=== PATIENT | male | born 1960 | race Caucasian/White ===

== ENCOUNTER → 2018-10-23 | Outpatient (CLI) | payer MEDICARE ==
[2015-10-20 17:42] VITALS: BP 114/71
[~2018-10-23] MED LIST: ABAT250V IV; FOLI1TAB16 PO; HYDR-3164 PO; HYDR-3165 PO; LORA10TA68 PO; METH25VI27 SQ; MULT-496 PO
--- NOTE | 2018-10-23 15:06 | KCIC ---
MR of the right knee Indication: Right knee pain. Prior meniscal surgery in 2015. Comparison: None are available. Technique: The standard multiplanar sequences are obtained. FINDINGS: Artifact: No significant image degradation. Medial meniscus: Complex tear. Lateral meniscus: Intact. Anterior cruciate ligament: Intact. Posterior cruciate ligament: Intact Medial collateral ligament: Intact. Lateral structures: * Iliotibial band: Intact. * Lateral collateral ligament: Intact. * Biceps femoris tendon: Intact * Popliteus tendon attachment: Intact Extensive mechanism: * Patellar tendon: Intact * Quadriceps tendon: Intact * Retinacular structures: Intact Fluid: Small joint effusion. Small Cutler's cyst. Intra-articular bodies: None visualized Joint compartments * patellofemoral joint: Chondral heterogeneity at the lateral patella with fissuring. * medial compartment: Moderate to severe chondromalacia with thinning at the medial femoral condyle. * lateral compartment: Mild degenerative change with chondromalacia. Bones: Small bone lesion, proximal fibula, measures about 1 cm, likely an enchondroma. No aggressive bone destruction or acute fracture. Minimal subchondral marrow edema posterior weightbearing lateral femoral condyle. Soft tissue: Unremarkable Impression: 1. Abnormal medial meniscus with distortion and some internal T2 signal. Even considering prior surgical intervention, this is compatible with a tear. 2. Primary osteoarthritis. Electronically signed by: Deandre Cook MD (10/23/2018 3:03 PM) [facility]-KCIC2
== END | disposition home or self-care (01) ==
LOC: KCIC MRI 12:46
PROVIDERS: ATTEND Family Medicine
DX: M17.11 Unilateral primary osteoarthritis, right knee (principal); M71.21 Synovial cyst of popliteal space [Baker], right knee
CPT/HCPCS: 73721

== ENCOUNTER → 2019-02-04 | Outpatient (CLI) | payer MEDICARE ==
[2015-10-20 17:42] VITALS: BP 114/71
--- NOTE | 2019-02-04 13:35 | KCIC ---
MR of the right knee HISTORY: Right knee pain, lateral injury a few days ago while taking a step. COMPARISON: 10/23/2018 TECHNIQUE: Routine multiplanar sequences FINDINGS: Medial meniscus is small and blunted. The posterior horn appears slightly smaller than the prior study. No evidence of lateral meniscal tear. Anterior and posterior cruciate ligament are intact. Medial collateral ligament intact. Iliotibial band, fibular collateral ligament and biceps femoris tendon are intact. Extensor mechanism is intact. Trace joint effusion. Defect/fissure at the lateral patellar facet is stable. Chondral thinning of the medial femoral condyle, appears full-thickness., Unchanged. Milder chondromalacia of the lateral joint compartment is stable. No aggressive bone destruction or acute fracture. Small Cutler's cyst. Mild lateral patellar tilt and subluxation again seen. IMPRESSION: 1. Findings again compatible with a medial meniscal tear. The posterior horn appears slightly smaller than previous study, could be due to progressive tearing unless there has been interim meniscectomy since prior study. 2. Primary osteoarthritis is redemonstrated. Electronically signed by: Deandre Cook MD (02/04/2019 1:32 PM) [facility]-KCIC2
== END | disposition home or self-care (01) ==
LOC: KCIC MRI 11:33
PROVIDERS: ATTEND Family Medicine
DX: S83.191A Other subluxation of right knee, initial encounter (principal); M17.11 Unilateral primary osteoarthritis, right knee; Z87.828 Personal history of other (healed) physical injury and trauma; X58.XXXA Exposure to other specified factors, initial encounter; Y93.89 Activity, other specified; Y92.89 Other specified places as the place of occurrence of the external cause; Y99.8 Other external cause status
CPT/HCPCS: 73721

== ENCOUNTER → 2019-09-06 | Outpatient (CLI) | payer MEDICARE ==
[2015-10-20 17:42] VITALS: BP 114/71
--- NOTE | 2019-09-06 11:00 | KCIC ---
EXAM: Dual energy x-ray absorptiometry (DEXA). HISTORY: Rheumatoid arthritis, chronic steroid use. TECHNIQUE: Dual energy x-ray absorptiometry of the lumbar spine and the left hip was performed. T-score of average bone mineral density based was calculated based on standard deviations above or below the expected young adult normal value. Diagnostic definitions were established by the World Health Organization. FINDINGS: The average bone mineral density associated with L1-L4 is 1.237 g/cm^2, corresponding with a T-score of 1.3. The average total bone mineral density associated with the left hip is 1.089 g/cm^2, corresponding with a T-score of 0.4. No comparison examinations are available. Refer to the worksheets for full detail. IMPRESSION: 1. Normal. Average bone mineral density yields a T-score of -1.0 or greater. Fracture risk is low. Electronically signed by: America Unger MD (09/06/2019 10:57 AM) [facility]
--- NOTE | 2019-09-07 09:39 | KCIC ---
CT LOW DOSE LUNG SCREENING History: Smoker. Technique: Noncontrast CT of the chest was performed. Coronal and sagittal reconstructions were performed. Low-dose screening protocol. Exposure: One or more of the following individualized dose reduction techniques were utilized for this examination: 1. Automated exposure control 2. Adjustment of the mA and/or kV according to patient size 3. Use of iterative reconstruction technique. Comparison: None Findings: Chest: Mildly prominent mediastinal lymph nodes largest measures 1.0 x 1.0 cm. Left hilar mildly prominent lymph node measures 1.2 x 0.8 cm. Calcified subcarinal lymph nodes and right middle lobe and lingular calcified pulmonary nodules, likely prior granulous disease. No consolidation or pleural effusion. Mild paraseptal emphysema. Right lower lobe medial pleural-based irregular nodular opacity measures 1.5 x 1.2 cm (series 3 image #[id number]). There is suggestion of air bronchogram. Upper abdomen: The imaged upper abdomen is unremarkable. Bones: No pathologic osseous lesions. Impression: 1. Right lower lobe medial pleural-based irregular nodular opacity with suggestion of air bronchograms, may represent atelectasis or infectious/inflammatory process although malignancy is possible. Recommend comparison with prior imaging studies. If prior imaging studies are not available recommend 3 month follow-up or PET CT to further evaluate. Lung RADS 4a. 2. Mildly prominent mediastinal and hilar lymph nodes. Recommend attention on follow-up. Electronically signed by: Edy Aranda DO (09/07/2019 9:37 AM) [id number]
== END | disposition home or self-care (01) ==
LOC: KCIC DEXA 08:56
PROVIDERS: ATTEND Family Medicine
DX: Z12.2 Encounter for screening for malignant neoplasm of respiratory organs (principal); J43.8 Other emphysema; R91.8 Other nonspecific abnormal finding of lung field; M05.89 Other rheumatoid arthritis with rheumatoid factor of multiple sites; F17.210 Nicotine dependence, cigarettes, uncomplicated; Z91.89 Other specified personal risk factors, not elsewhere classified; Z79.52 Long term (current) use of systemic steroids; Z88.8 Allergy status to other drugs, medicaments and biological substances; Z79.899 Other long term (current) drug therapy
CPT/HCPCS: 77080; G0297

== ENCOUNTER → 2019-12-01 | Outpatient (CLI) | payer MEDICARE ==
[2015-10-20 17:42] VITALS: BP 114/71
--- NOTE | 2019-12-01 16:43 | KCIC ---
EXAM: CHEST 2 VIEWS. HISTORY: Right chest pain, right lobectomy. COMPARISON: None. FINDINGS: Frontal and lateral views of the chest are obtained. There are no confluent infiltrates. A trace right pleural effusion is suspected. There is no pneumothorax. The heart is not enlarged. The aorta is calcified and tortuous. IMPRESSION: 1. Trace right pleural effusion. No clear cause for pain is identified. CT is more sensitive if there is persistent concern. Electronically signed by: America Unger MD (12/01/2019 4:40 PM) [facility]
== END | disposition home or self-care (01) ==
LOC: KCIC 11:53
PROVIDERS: ATTEND Family Medicine
DX: I70.0 Atherosclerosis of aorta (principal); J90 Pleural effusion, not elsewhere classified
CPT/HCPCS: 71046

== ENCOUNTER → 2020-05-08 | Outpatient (CLI) | payer MEDICARE ==
[2015-10-20 17:42] VITALS: BP 114/71
[~2020-05-08] MED LIST changes: -ABAT250V IV; +ABAT250V2 IV
--- NOTE | 2020-05-08 08:59 | KCIC ---
EXAM: Left hip, 2 views. HISTORY: Pain. COMPARISON: None. FINDINGS: 2 views of the left hip are obtained. There is no fracture, dislocation or subluxation. The femoral head is normal in configuration. IMPRESSION: No acute osseous finding. Electronically signed by: Jessica Patel MD (05/08/2020 8:56 AM) [id number]
--- NOTE | 2020-05-08 09:01 | KCIC ---
CERVICAL SPINE 5V History: Reason: NECK PAIN, RT ARM/HAND NUMBNESS, WEAKNESS POST FALL 2 MO AGO / Spl. Instructions: / History: Technique: 5 views of the cervical spine. Comparison: None. Findings: Straightening of the normal cervical lordosis. Multilevel degenerative changes most prominent moderate C5-C6 and C6-C7. Mild retrolisthesis C5 on C6. No fracture. Multilevel bony neuroforaminal narrowing. Normal alignment C1 on C2. Prevertebral soft tissues unremarkable. Impression: 1. Multilevel cervical spondylosis most prominent C5-C6 and C6-C7. Electronically signed by: Edy Aranda DO (05/08/2020 8:58 AM) [id number]
== END | disposition home or self-care (01) ==
LOC: KCIC 08:08
PROVIDERS: ATTEND Family Medicine
DX: M47.812 Spondylosis without myelopathy or radiculopathy, cervical region (principal); M25.552 Pain in left hip; G89.29 Other chronic pain
CPT/HCPCS: 72050; 73501

== ENCOUNTER → 2020-11-16 | Outpatient (CLI) | payer MEDICARE ==
[2015-10-20 17:42] VITALS: BP 114/71
--- NOTE | 2020-11-16 12:19 | KCIC ---
XR KNEE_AP BILAT STANDING 11/16/2020 8:25 AM INDICATION: Rheumatoid arthritis COMPARISON: None available. TECHNIQUE: AP standing views of the knees are provided. FINDINGS/ IMPRESSION: 1. There is mild to moderate medial femorotibial joint space narrowing of the right knee. No signific ant joint space narrowing involving the left knee. Findings are suggestive of mild medial femorotibia l osteoarthrosis of the right knee. Limited evaluation for knee joint effusion given single view. Mil d lateral femorotibial osteophytosis of the right knee. 2. No acute fracture or dislocation. Electronically signed by: Naima Le MD (11/16/2020 12:17 PM) [id number]
--- NOTE | 2020-11-16 12:20 | KCIC ---
XR SHOULDER 2+ VIEWS 11/16/2020 8:25 AM INDICATION: Rheumatoid arthritis COMPARISON: None available. TECHNIQUE: 3 views of the left and 3 views the right shoulder are provided. FINDINGS/ IMPRESSION: There is no acute fracture or dislocation. Mild left acromioclavicular osteoarthrosis with inferiorly projecting osteophyte. Mild right glenohumeral osteoarthrosis with joint space 19 marginal osteophyt osis along the humeral head. Bone mineralization is within normal limits. Regional soft tissues are w ithin normal limits. There is no soft tissue gas or osseous erosion. No radiopaque foreign body. Electronically signed by: Naima Le MD (11/16/2020 12:17 PM) [id number]
--- NOTE | 2020-11-16 12:23 | KCIC ---
XR HAND 3 VIEWS 11/16/2020 8:25 AM INDICATION: Rheumatoid arthritis COMPARISON: None available. TECHNIQUE: 3 views of the right 3 views of the left hand are provided. FINDINGS/ IMPRESSION: 1. Left: There are is mild interphalangeal joint space narrowing compatible with mild osteoarthrosis of the left hand predominantly involving the first interphalangeal joint. There is moderate to advanc ed joint space narrowing radiocarpal joint with subcortical sclerosis and subcortical cystic change a long the radial surface and carpal bones. Findings are compatible with moderate to advanced osteoarth rosis of the wrist. Mild first carpometacarpal osteoarthrosis. There may be mild subluxation of the t hird metacarpophalangeal joint with marginal osteophytosis along the head of the third metacarpal. No osseous erosions or subcutaneous gas. 2. Mild joint space narrowing of the interphalangeal joints with more moderate joint space measuring of the first interphalangeal joint with marginal osteophytosis compatible with mild to moderate osteo porosis. There is moderate to advanced osteoporosis of the radiocarpal joint and intercarpal joints. No acute fractures identified. No osseous erosion or subcutaneous gas. Electronically signed by: Naima Le MD (11/16/2020 12:21 PM) [id number]
--- NOTE | 2020-11-16 12:28 | KCIC ---
XR FEET 3 VIEWS 11/16/2020 8:25 AM INDICATION: Rheumatoid arthritis COMPARISON: None available. TECHNIQUE: 3 views the right and 3 views the left foot are provided. FINDINGS/ IMPRESSION: There is no acute fracture or dislocation. Joint spaces are maintained. Bone mineralization is within normal limits. Regional soft tissues are within normal limits. There is no soft tissue gas or osseou s erosion. No radiopaque foreign body. Plantar calcaneal enthesophytes are identified bilaterally. Electronically signed by: Naima Le MD (11/16/2020 12:26 PM) [id number]
== END ==
LOC: KCIC 08:20
PROVIDERS: ATTEND Family Medicine
DX: M19.042 Primary osteoarthritis, left hand (principal); M19.041 Primary osteoarthritis, right hand; M19.012 Primary osteoarthritis, left shoulder; M25.461 Effusion, right knee; M19.011 Primary osteoarthritis, right shoulder; M77.32 Calcaneal spur, left foot; M77.31 Calcaneal spur, right foot; H04.123 Dry eye syndrome of bilateral lacrimal glands; M05.79 Rheumatoid arthritis with rheumatoid factor of multiple sites without organ or systems involvement; M17.9 Osteoarthritis of knee, unspecified; R19.7 Diarrhea, unspecified; R68.2 Dry mouth, unspecified; Z85.118 Personal history of other malignant neoplasm of bronchus and lung
CPT/HCPCS: 73565; 73130-50; 73630-50

== ENCOUNTER → 2021-09-20 | Outpatient (CLI) | payer MEDICARE ==
[2015-10-20 17:42] VITALS: BP 114/71
--- NOTE | 2021-09-20 15:49 | KCIC ---
EXAM: Lumbar spine MRI without contrast. HISTORY: Sciatica. Left lower extremity radiculopathy. TECHNIQUE: Multiplanar, multisequence magnetic resonance imaging of the lumbar spine was performed wi thout contrast. COMPARISON: None. FINDINGS: There is no significant listhesis. There is multilevel endplate remodeling. There are multi ple endplate Schmorl's nodes. There is no fracture. There is no suspicious osseous lesion. There are small Tarlov cyst within the sacral canal. The conus terminates at L1-L2. At L1-L2, there is a disc bulge and endplate remodeling. There is no stenosis. At L2-L3, there is a disc bulge and endplate remodeling. There is no stenosis. At L3-L4, there is a disc bulge and endplate remodeling. There is a right anterolateral annular tear. There is mild bilateral facet arthropathy. There is no stenosis. At L4-L5, there is a disc bulge and endplate remodeling. There is mild bilateral facet arthropathy. T here are left hemilaminectomy changes. There is associated scarring within the posterior back subcuta neous fat to left of midline. There is mild bilateral foraminal stenosis with suspected abutment or n ear abutment of the exiting L4 nerve roots. At L5-S1, there is mild right facet arthropathy. There is no stenosis. IMPRESSION: 1. L4-L5: Disc bulge with endplate remodeling and bilateral facet arthropathy, contributing to mild b ilateral foraminal stenosis. There are left hemilaminectomy changes at this level. 2. Mild degenerative change at additional lumbar levels, without significant stenosis. Electronically signed by: Jessica Patel MD (09/20/2021 3:47 PM) [id number]
== END ==
LOC: KCIC MRI 13:40
PROVIDERS: ATTEND Family Medicine
DX: M47.817 Spondylosis without myelopathy or radiculopathy, lumbosacral region (principal); M51.26 Other intervertebral disc displacement, lumbar region; M48.061 Spinal stenosis, lumbar region without neurogenic claudication; M51.46 Schmorl's nodes, lumbar region; G96.191 Perineural cyst; M54.30 Sciatica, unspecified side
CPT/HCPCS: 72148

== ENCOUNTER 2021-12-01 09:28 | Inpatient (IN) | payer MEDICARE ==
[~2021-12-01] VITALS: Ht 167.6 cm; Wt 118.2 kg
[2021-12-01] MEDS ORDERED: OXYC1TAB22 PO (10:38)
[2021-12-01] MEDS ORDERED: PREG150C PO (10:38)
[2021-12-01] MEDS ORDERED: CHOL10004 PO (10:42)
[2021-12-01] MEDS ORDERED: NALOXONE 0.4 MG/ML VIAL. IV PRN (11:15)
[2021-12-01] MEDS: IV NORMAL SALINE 1000ML BAG 1,000 ML IV SCH (11:15)
[2021-12-01] MEDS: HYDROmorphone 12mg/30ml PCA 30 ML IV PRN ×2 (11:51→21:48)
[2021-12-01 12:15] LABS: BASO # 0.1 x10^3/uL (0.0-0.2); BASO % 1 % (0-3); EOS # 0.2 x10^3/uL (0.0-0.7); EOS % 2 % (0-3); HEMATOCRIT 44.8 % (39.0-53.0); HEMOGLOBIN 14.7 g/dL (13.0-17.5); LYMPH # 2.8 x10^3/uL (1.0-4.8); LYMPH % 19 % (24-48); MEAN CORPUSCULAR HEMOGLOBIN 29 pg (25-35); MEAN CORPUSCULAR HGB CONC 33 g/dL (31-37); MEAN CORPUSCULAR VOLUME 88 fL (79-100); MONO # 1.2 x10^3/uL (0.0-1.1); MONO % 8 % (0-9); NEUT # 10.5 x10^3/uL (1.8-7.7); NEUT % 71 % (31-73); PLATELET COUNT 262 x10^3/uL (140-400); RED BLOOD COUNT 5.07 x10^6/uL (4.30-5.70); RED CELL DISTRIBUTION WIDTH 14.2 % (11.5-14.5); WHITE BLOOD COUNT 14.8 x10^3/uL (4.0-11.0)
[2021-12-01 12:33] LABS: ALBUMIN 3.4 g/dL (3.4-5.0); ALBUMIN/GLOBULIN RATIO 0.8 (1.0-1.7); CALCIUM 8.5 mg/dL (8.5-10.1); CREATININE 1.1 mg/dL (0.7-1.3); GFR 68.1; TOTAL BILIRUBIN 0.6 mg/dL (0.2-1.0); TOTAL PROTEIN 7.6 g/dL (6.4-8.2)
[2021-12-01 15:00] VITALS: BP 112/94
[2021-12-01 19:00] VITALS: BP 114/56
[2021-12-01] MEDS: POLYETHYLENE GLYCOL 3350 17 GM PACKET. PO SCH (21:27)
[2021-12-01 23:00] VITALS: BP 130/88
[2021-12-02 03:00] VITALS: BP 131/77
[2021-12-02 07:00] VITALS: BP 106/64
--- NOTE | 2021-12-02 08:09 | HP ---
DATE OF SERVICE: 12/01/2021 ADMIT DATE: 12/01/2021 CHIEF COMPLAINT: Intractable nerve pain. 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 He has had intractable and increasing left leg pain in the last several weeks, felt to be L4 and L5 nerve root source. He saw ____ as a consult and no intervention was recommended and has seen an outside neurosurgeon and further imaging studies were planned, but not yet completed. He has had increasingly severe and intractable pain, failing to benefit from hydrocodone, gabapentin, Lyrica and now oxycodone. He is developing intermittent weakness and giving away in the left leg, indicative of progressive nerve root impingement, felt to be L4 and L5 in origin on the left side. He has been admitted for IV pain control and neurosurgical assessment for consideration of further imaging studies and some kind of intervention. PAST MEDICAL HISTORY: Well documented in the old records. 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 He is a diet controlled diabetic, on no medications and no allergies are known. SOCIAL HISTORY: He is nonsmoker, nondrinker. 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 FAMILY HISTORY: Unremarkable. REVIEW OF SYSTEMS: No other known problems. OBJECTIVE: ENT: Unremarkable. NECK: No masses, nodes or bruits. LUNGS: Clear. CARDIOVASCULAR: Regular rate. No tachycardia or murmur. ABDOMEN: Obese, soft, benign. EXTREMITIES: Good pedal and radial pulses. NEUROLOGIC: He has sensory changes in the anterior aspect of the left thigh and down the left lateral leg consistent with an L4 and/or L5 distribution of pain. There appears to be some give-away type weakness in the left quadriceps and possibly hip abductors. Reflexes are diminished diffusely. No clonus is noted. Gait was not tested. No tremors are noted. Mental status is depressed, in pain, but nonfocal. ASSESSMENT: Progressively severe and intractable left lumbar nerve root pain in the L4-L5 origin, may be involving the lesion superior and inferior to preexisting lumbar fusion surgery in the past. PLAN: IV Dilaudid as SIGN INSTALLER for aggressive pain intervention. We will add p.r.n. Toradol trial. Neurosurgical consultation to assess need for further imaging studies. ELAINE/KARISSA/KIM DR: Vipul TID: [id number]
[2021-12-02] MEDS: MULTIVITAMIN with MINERAL TABLET. PO SCH (08:16)
[2021-12-02] MEDS: POLYETHYLENE GLYCOL 3350 17 GM PACKET. PO SCH ×2 (08:16→21:00)
[2021-12-02] MEDS: CETIRIZINE HCL 10 MG TABLET. PO SCH (08:16)
[2021-12-02] MEDS: PREGABALIN 75 MG CAPSULE PO SCH ×3 (08:16→21:12)
[2021-12-02] MEDS: CHOLECALCIFEROL (VITAMIN D3) 1,000 UNIT TABLET PO SCH (08:16)
[2021-12-02] MEDS: KETOROLAC 30 MG/ML VIAL. IVP PRN ×2 (08:17→16:55)
--- NOTE | 2021-12-02 10:36 | PN ---
DATE: 12/02/2021 LOCATION: He is in room 418. SUBJECTIVE: This is a 61-year-old, a patient of Dr. Lenny Byers's admitted for intractable left lumbar radicular pain for TILE TRIMMER pump and further evaluation. OBJECTIVE: VITAL SIGNS: Stable. He is afebrile. GENERAL: He is awake and alert. is present. He does use a TILE TRIMMER pump while I am in the room. CHEST: Clear. HEART: Regular. ABDOMEN: Benign. EXTREMITIES: He has decent strength in his left leg. ASSESSMENT: Intractable pain due to left lumbar radiculopathy. PLAN: Pain control. Neurosurgery evaluation. Plans to follow. JENNI DR: Se TID: [id number]
[2021-12-02] MEDS: HYDROmorphone 12mg/30ml PCA 30 ML IV PRN (10:57)
[2021-12-02 11:00] VITALS: BP 126/61
[2021-12-02 15:00] VITALS: BP 129/78
[2021-12-02] MEDS: IV NORMAL SALINE 1000ML BAG 1,000 ML IV SCH (15:35)
[2021-12-02 19:00] VITALS: BP 125/65
[2021-12-02 23:00] VITALS: BP 129/78
[2021-12-03] MEDS: IV NORMAL SALINE 1000ML BAG 1,000 ML IV SCH (00:50)
[2021-12-03 03:00] VITALS: BP 115/82
[2021-12-03] MEDS: KETOROLAC 30 MG/ML VIAL. IVP PRN ×2 (03:41→11:58)
[2021-12-03] MEDS: HYDROmorphone 12mg/30ml PCA 30 ML IV PRN ×2 (06:55→23:48)
[2021-12-03 07:00] VITALS: BP 126/76
[2021-12-03] MEDS: POLYETHYLENE GLYCOL 3350 17 GM PACKET. PO SCH ×2 (08:02→21:00)
[2021-12-03] MEDS: CHOLECALCIFEROL (VITAMIN D3) 1,000 UNIT TABLET PO SCH (08:03)
[2021-12-03] MEDS: MULTIVITAMIN with MINERAL TABLET. PO SCH (08:03)
[2021-12-03] MEDS: CETIRIZINE HCL 10 MG TABLET. PO SCH (08:03)
[2021-12-03] MEDS: PREGABALIN 75 MG CAPSULE PO SCH ×3 (08:04→21:06)
--- NOTE | 2021-12-03 08:58 | PDOC ---
Provider Note Date of Service: DATE: 12/03/21 TIME: 08:55 Provider Note PAIN WELL CONTROLLED RE DILAUDID AND TORADOL, WAS INTRACTABLE AT HOME DESPITE PERCOCET /LYRICA- SEEMS l l4 OR l 5 ROOOT ORIGIN- RECENT WEIGHT BEARING XRAYS WERE DONE LAST WEEK, LAST MRI WAS 09/23- NS TO SEE TODAY FPR PLAN, ? MYELOGRAM, ETC Justifications for Admission Other Justification FLORINDA LIU MD Dec 03, 2021 08:58
--- NOTE | 2021-12-03 10:22 | PDOC ---
Provider Note Date of Service: DATE: 12/03/21 TIME: 10:16 Provider Note Patient seen and examined c/o back and left leg pain, pain radiates to anterior lateral left thigh and lower leg to big toe lumbar surgery [address] Alamo, saw another surgeon at [facility] for 2nd opinion reports that pain is improved with CASHIER SELF SERVICE GASOLINE exam- tenderness of left lower lumbar spine with palpation, normal strength in lower extremities MRI from September 2021, post op changes, disc bulging at L4-5, no evidence of spinal stenosis or nerve root compression will review lumbar flex ext x rays done at outside facility, will order new MRI scan because of his significant increase in pain will follow Justifications for Admission Other Justification CHARY MONTEZ MD Dec 03, 2021 10:22
--- NOTE | 2021-12-03 10:39 | NUR ---
SW following. Discussed with RN, pt from home, room air, regular diet, COUNTER CLERK. Dr. Higgins following. RN advised no SW needs at this time. SW will continue to follow.
[2021-12-03 11:00] VITALS: BP 118/53
--- NOTE | 2021-12-03 13:24 | RAD ---
MR LUMBAR SPINE WO [id number] History: Reason: lumbar radiculopathy / Spl. Instructions: / History: Technique: Multiplanar, multi sequential MR imaging was performed of the lumbar spine. Comparison: September 20, 2021 Findings: Motion degraded evaluation. Normal vertebral body height and alignment. No fracture. Conus terminates at the normal location. No evidence of nerve root clumping. Partially imaged nonspecific edema adjacent to the right T11-T12 vertebral bodies (series 6001 image 1 through 3), similar compared to prior. L1-L2: Small right foraminal disc protrusion. Mild right neuroforaminal narrowing. No left neurofora anthony narrowing. No canal narrowing. L2-L3: No canal narrowing. Bilateral foraminal disc bulges. Mild bilateral neuroforaminal narrowing. Mild facet arthropathy. L3-L4: Small broad-based disc bulge. Moderate facet arthropathy. No canal narrowing. Mild bilateral neuroforaminal narrowing. L4-L5: Small broad-based disc bulge. Moderate to advanced facet arthropathy. Postoperative changes l eft hemilaminectomy. No canal narrowing. Mild to moderate bilateral neuroforaminal narrowing. L5-S1: Minimal disc bulge. Advanced facet arthropathy, right greater than left. No canal narrowing. Prominent epidural fat narrowing the thecal sac inferiorly. No neuroforaminal narrowing. When compared the prior examination the degenerative findings are similar. Impression: 1. Multilevel lumbar spondylosis most prominent L4-L5, similar compared to prior. 2. Nonspecific edema adjacent to the right T11 and T12 vertebral bodies, may relate to pleural fluid . If persistent clinical concern, recommend dedicated imaging. Electronically signed by: Edy Aranda DO (12/03/2021 1:21 PM) [facility]
[2021-12-03 15:00] VITALS: BP 115/75
[2021-12-03 19:30] VITALS: BP 138/77
[2021-12-03 23:22] VITALS: BP 113/67
[2021-12-04 03:02] VITALS: BP 122/68
[2021-12-04] MEDS: KETOROLAC 30 MG/ML VIAL. IVP PRN ×3 (05:19→22:40)
[2021-12-04 07:15] VITALS: BP 136/58
[2021-12-04] MEDS: PREGABALIN 75 MG CAPSULE PO SCH ×3 (08:30→21:37)
[2021-12-04] MEDS: CHOLECALCIFEROL (VITAMIN D3) 1,000 UNIT TABLET PO SCH (08:30)
[2021-12-04] MEDS: CETIRIZINE HCL 10 MG TABLET. PO SCH (08:30)
[2021-12-04] MEDS: MULTIVITAMIN with MINERAL TABLET. PO SCH (08:31)
[2021-12-04] MEDS: POLYETHYLENE GLYCOL 3350 17 GM PACKET. PO SCH ×2 (08:32→21:00)
--- NOTE | 2021-12-04 08:39 | PDOC ---
Provider Note Date of Service: DATE: 12/04/21 TIME: 08:37 Provider Note STILL GOOD PAIN CONTROL RE DILAUDID /TORADOL, mri done, neuro input pending Justifications for Admission Other Justification FLORINDA LIU MD Dec 04, 2021 08:39
[2021-12-04] MEDS: IV NORMAL SALINE 1000ML BAG 1,000 ML IV SCH (11:15)
[2021-12-04 11:19] VITALS: BP 131/69
[2021-12-04] MEDS ORDERED: ACYC200C84 PO (12:26)
--- NOTE | 2021-12-04 13:19 | PDOC ---
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 There was no significant change on the MRI when compared to scan from September. There was no abnormal motion on flex/ ext x rays. I do not see a surgical problem. He can wean from CANCER PROGRAM DIRECTOR as tolerated. Recommend another epidural steroid injection He should f/u with Dr. Alamo who has ordered an EMG/ NCS. D/W RN. Comment Review of Relevant I have reviewed the following items belem (where applicable) has been applied. Medications Current Medications Polyethylene Glycol (miraLAX PACKET) 17 gm BID PO ; Start 12/01/21 at 21:00 Ketorolac Tromethamine (Toradol 30mg Vial) 30 mg Q8HRS PRN IVP INFLAMMATION Last administered on 12/04/21at 05:19; Start 12/01/21 at 11:15; Stop 12/06/21 at 11:14 Naloxone HCl (Narcan) 0.4 mg PRN Q2MIN PRN IV SEE INSTRUCTIONS; Start 12/01/21 at 11:15 Sodium Chloride 1,000 ml @ 25 mls/hr Q24H IV Last administered on 12/03/21at 00:50; Start 12/01/21 at 11:15 Hydromorphone HCl 30 ml @ 0 mls/hr CONT PRN PRN IV PER PROTOCOL Last administered on 12/03/21at 23:48; Start 12/01/21 at 11:15 Vitamin D (Vitamin D3) 1,000 unit DAILY PO Last administered on 12/04/21at 08:30; Start 12/02/21 at 09:00 Cetirizine HCl (ZyrTEC) 10 mg DAILY PO Last administered on 12/04/21at 08:30; Start 12/02/21 at 09:00 Multivitamins (Thera M Plus) 1 tab DAILY PO Last administered on 12/04/21at 08:31; Start 12/02/21 at 09:00 Pregabalin (Lyrica) 150 mg TID PO Last administered on 12/04/21at 08:30; Start 12/02/21 at 09:00 Acyclovir (Zovirax) 200 mg TID PO ; Start 12/04/21 at 14:00 Active Scripts Active [place] 7.5-325 Tablet (Acetaminophen/Hydrocodone Bitart) 1 Each Tablet 1-2 Tab PO PRN Q6HRS PRN Reported Acyclovir 200 Mg Capsule 1 Cap PO DAILY Vitamin D3 (Vitamin D) 25 Mcg Tablet 25 Mcg PO DAILY 1,000 UNITS = 25 MCG Percocet 10-325 Mg Tablet (Oxycodone/Acetaminophen) 1 Each Tablet 1 Tab PO PRN Q6HRS PRN Lyrica (Pregabalin) 150 Mg Capsule 150 Mg PO TID 30 Days Daily Value (Multivitamin) 1 Each Tablet 1 Each PO DAILY Claritin (Loratadine) 10 Mg Tablet 1 Tab PO DAILY Vitals/I & O Vital Sign - Last 24 Hours 12/03/21 12/03/21 12/03/21 12/03/21 15:00 19:30 20:10 23:22 Temp 97.9 98.3 97.7 97.9 98.3 97.7 Pulse 71 75 84 Resp 16 18 20 B/P (MAP) 115/75 (88) 138/77 (97) 113/67 (82) Pulse Ox 95 90 90 O2 Delivery Room Air Room Air Room Air Room Air 12/03/21 12/04/21 12/04/21 12/04/21 23:48 00:18 03:02 07:15 Temp 98.0 99.1 98.0 99.1 Pulse 80 65 Resp 20 20 B/P (MAP) 122/68 (86) 136/58 (84) Pulse Ox 90 90 90 100 O2 Delivery Room Air Room Air Room Air Room Air O2 Flow Rate 2.0 2.0 12/04/21 12/04/21 07:50 11:19 Temp 98.2 98.2 Pulse 84 Resp 20 B/P (MAP) 131/69 (89) Pulse Ox 96 O2 Delivery Room Air Room Air Intake and Output 12/03/21 12/03/21 12/04/21 15:00 23:00 07:00 Intake Total 300 ml 480 ml Balance 300 ml 480 ml Justifications for Admission Other Justification CHARY MONTEZ MD Dec 04, 2021 13:19
[2021-12-04] MEDS: ACYCLOVIR 200 MG CAPSULE. PO SCH ×2 (13:23→21:37)
[2021-12-04 15:08] VITALS: BP 126/84
[2021-12-04 19:30] VITALS: BP 130/86
[2021-12-04] MEDS: HYDROmorphone 12mg/30ml PCA 30 ML IV PRN (19:35)
[2021-12-04 23:27] VITALS: BP 144/86
[2021-12-05 03:10] VITALS: BP 129/85
[2021-12-05 07:15] VITALS: BP 143/82
--- NOTE | 2021-12-05 08:46 | PDOC ---
Provider Note Date of Service: DATE: 12/05/21 TIME: 08:45 Provider Note will try po dilaudid in advance of dc, he will go to research for other neurourg if unable to wait for next appt Justifications for Admission Other Justification FLORINDA LIU MD Dec 05, 2021 08:46
[2021-12-05] MEDS: CETIRIZINE HCL 10 MG TABLET. PO SCH (08:56)
[2021-12-05] MEDS: PREGABALIN 75 MG CAPSULE PO SCH ×3 (08:56→20:53)
[2021-12-05] MEDS: CHOLECALCIFEROL (VITAMIN D3) 1,000 UNIT TABLET PO SCH (08:56)
[2021-12-05] MEDS: ACYCLOVIR 200 MG CAPSULE. PO SCH ×3 (08:56→20:53)
[2021-12-05] MEDS: KETOROLAC 30 MG/ML VIAL. IVP PRN ×3 (08:57→22:56)
[2021-12-05] MEDS: MULTIVITAMIN with MINERAL TABLET. PO SCH (08:57)
[2021-12-05] MEDS: POLYETHYLENE GLYCOL 3350 17 GM PACKET. PO SCH ×2 (09:00→21:00)
[2021-12-05] MEDS: IV NORMAL SALINE 1000ML BAG 1,000 ML IV SCH (11:15)
[2021-12-05 11:30] VITALS: BP 132/84
[2021-12-05] MEDS: HYDROmorphone 2 MG TABLET PO PRN ×3 (12:16→20:53)
--- NOTE | 2021-12-05 12:21 | NUR ---
QUILL REAMER stopped and gave PO Dilaudid. Cont. monitor.
--- NOTE | 2021-12-05 13:51 | NUR ---
SW following. Discussed with RN, FAMILY PRACTICE DOCTOR stopped today. Dr. Higgins following. RN advised no SW needs at this time. SW will continue to follow.
[2021-12-05 15:09] VITALS: BP 144/92
[2021-12-05] MEDS ORDERED: MAG HYDROX/ALUMINUM HYD/SIMETH 30 ML ORAL.SUSP PO ONE (16:15)
[2021-12-05 19:00] VITALS: BP 156/89
[2021-12-05 23:00] VITALS: BP 114/66
--- NOTE | 2021-12-06 06:47 | NUR ---
Slept well all noc. Is now dangling at bedside, "huffing" and moaning. "Nothing works for the pain"
[2021-12-06 07:15] VITALS: BP 14/76
[2021-12-06] MEDS: HYDROmorphone 2 MG TABLET PO PRN (07:20)
--- NOTE | 2021-12-06 07:23 | NUR ---
Patient became angry with staff and verbally insulting. Patient was under the impression that he would be awoken for Dilaudid po through the noc q4h regardless. Is setting his phone alarm for 11:30am. Discussed w/ day staff.
--- NOTE | 2021-12-06 08:42 | SNU/HH DC ---
DISCHARGE ORDERS DISCHARGE INFORMATION: CONDITION ON DISCHARGE: Stable CODE STATUS: Code Status: Full POST DISCHARGE ORDERS: ACTIVITY ORDERS: Activity as tolerated DIET AFTER DISCHARGE: Regular WOUND/INCISION CARE: Ice to area for comfort DISCHARGE MEDICATIONS: Home Meds Active Scripts Hydrocodone/Apap 7.5-325 (NORCO 7.5-325 TABLET) 1 Each Tablet, 1-2 TAB PO PRN Q6HRS PRN for PAIN, #60 TAB Prov:MILLIE WHITFIELD MD 10/20/15 Reported Medications Acyclovir (ACYCLOVIR) 200 Mg Capsule, 1 CAP PO DAILY for cold sores, #25 CAP 12/04/21 Cholecalciferol (Vitamin D3) (Vitamin D3 ) 25 Mcg Tablet, 25 MCG PO DAILY for SUPPLEMENT, TAB 1,000 UNITS = 25 MCG 12/01/21 Oxycodone/Apap 10-325 (PERCOCET 10-325 MG TABLET ) 1 Each Tablet, 1 TAB PO PRN Q6HRS PRN for PAIN, TAB 0 Refills 12/01/21 Pregabalin (LYRICA) 150 Mg Capsule, 150 MG PO TID for Nerve pain for 30 Days, CAP 0 Refills 12/01/21 Multivitamin (DAILY VALUE) 1 Each Tablet, 1 EACH PO DAILY 10/20/15 Loratadine (CLARITIN) 10 Mg Tablet, 1 TAB PO DAILY, #30 TAB 5 Refills 10/20/15 FLORINDA LIU MD Dec 06, 2021 08:42
[2021-12-06] MEDS ORDERED: HYDROmorphone 2 MG TABLET PO ONE (08:45)
[2021-12-06] MEDS: CETIRIZINE HCL 10 MG TABLET. PO SCH (09:00)
[2021-12-06] MEDS: CHOLECALCIFEROL (VITAMIN D3) 1,000 UNIT TABLET PO SCH (09:00)
[2021-12-06] MEDS: MULTIVITAMIN with MINERAL TABLET. PO SCH (09:00)
[2021-12-06] MEDS: POLYETHYLENE GLYCOL 3350 17 GM PACKET. PO SCH (09:00)
[2021-12-06] MEDS: PREGABALIN 75 MG CAPSULE PO SCH (09:00)
[2021-12-06] MEDS: ACYCLOVIR 200 MG CAPSULE. PO SCH (09:00)
[2021-12-06] MEDS: KETOROLAC 30 MG/ML VIAL. IVP PRN (09:05)
--- NOTE | 2021-12-06 09:29 | DS ---
DATE OF DISCHARGE: 12/06/2021 HOSPITAL SUMMARY: The patient admitted with intractable left lumbar radicular pain, felt to be L4-L5 in origin. He was unresponsive to oral oxycodone and Lyrica and steroids at home, came in for pain control and neurosurgical opinion. MRI was done, which had been done about 3 months prior and no specific traumatic abnormalities were found per neurosurgeon, Dr. Higgins. Chemistry studies and CBC unremarkable. 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 FINAL DIAGNOSES: Intractable left lumbar radiculopathy. Etiology is undetermined. OPERATIONS, PROCEDURES, AND COMPLICATIONS: None. CONSULTATION: Dr. Higgins. DISPOSITION: Home meds remain the same with the addition of Dilaudid 2 mg q.i.d. p.r.n. He will take those at home, will go directly to [facility] for further evaluation for the neurosurgeon at this point. MADDY FIELD: Vipul TID: [id number]
--- NOTE | 2021-12-06 09:30 | NUR ---
Still c/o left leg pain extra dose of Dilaudid given per doctors order. Toradol IV given prior to dc IV. Discharge instructions given to pt's . Answered questions and concerns. Verbalized understanding. Discharge home. Escorted out by w/c.
--- NOTE | 2021-12-06 09:41 | NUR ---
SW following. Chart reviewed, discharge order for home with self care. No SW needs identified at this time.
== END 2021-12-06 09:30 | disposition home or self-care (01) | DRG 552 ==
LOC: 4 NORTH 09:28
PROVIDERS: ADMIT Family Medicine; ATTEND Family Medicine
DX: M54.16 Radiculopathy, lumbar region (principal); E11.9 Type 2 diabetes mellitus without complications; Z20.822 Contact with and (suspected) exposure to COVID-19
CPT/HCPCS: 36415; 72148; 80053; 85025; 85651; J1170; J1885; J7030; G0378

== ENCOUNTER 2022-01-08 19:36 | Inpatient (IN) | payer MEDICARE ==
[~2022-01-08] VITALS: Ht 167.6 cm; Wt 120.5 kg
[~2022-01-08 19:36] MED LIST changes: +ACYC200C84 PO; +CHOL10004 PO; +OXYC1TAB22 PO; +PREG150C PO
[2022-01-08] MEDS ORDERED: HYDROmorphone 2 MG TABLET PO SCH (20:30)
[2022-01-08 20:46] LABS: BASO # 0.1 x10^3/uL (0.0-0.2); BASO % 1 % (0-3); EOS # 0.9 x10^3/uL (0.0-0.7); EOS % 8 % (0-3); HEMATOCRIT 41.5 % (39.0-53.0); HEMOGLOBIN 13.7 g/dL (13.0-17.5); LYMPH # 2.2 x10^3/uL (1.0-4.8); LYMPH % 18 % (24-48); MEAN CORPUSCULAR HEMOGLOBIN 29 pg (25-35); MEAN CORPUSCULAR HGB CONC 33 g/dL (31-37); MEAN CORPUSCULAR VOLUME 87 fL (79-100); MONO # 0.6 x10^3/uL (0.0-1.1); MONO % 5 % (0-9); NEUT # 8.3 x10^3/uL (1.8-7.7); NEUT % 68 % (31-73); PLATELET COUNT 297 x10^3/uL (140-400); RED BLOOD COUNT 4.79 x10^6/uL (4.30-5.70); WHITE BLOOD COUNT 12.1 x10^3/uL (4.0-11.0)
[2022-01-08 20:53] LABS: CREATININE 1.3 mg/dL (0.7-1.3); GFR 56.1; POTASSIUM 3.9 mmol/L (3.5-5.1)
[2022-01-08 20:59] LABS: ALBUMIN 3.3 g/dL (3.4-5.0); TOTAL BILIRUBIN 0.4 mg/dL (0.2-1.0); TOTAL PROTEIN 6.7 g/dL (6.4-8.2)
[2022-01-08] MEDS: IBUPROFEN 400 MG TABLET. PO SCH (23:38)
[2022-01-08 23:40] VITALS: BP 132/81
[2022-01-09] MEDS: PREGABALIN 75 MG CAPSULE PO SCH ×4 (02:16→17:44)
[2022-01-09] MEDS: HYDROmorphone 2 MG TABLET PO SCH ×4 (02:16→20:16)
[2022-01-09 03:00] VITALS: BP_SYST 125; BP_SYST 126; BP_SYST 95; BP_DIAS 63; BP_DIAS 80
[2022-01-09] MEDS: IBUPROFEN 400 MG TABLET. PO SCH ×4 (05:13→23:11)
[2022-01-09 07:00] VITALS: BP 140/87
[2022-01-09] MEDS: PANTOPRAZOLE 40 MG TABLET.DR. PO SCH (08:07)
--- NOTE | 2022-01-09 09:50 | PDOC2 ---
EFREN SABA INTERACTIVE MEDIA MARKETING DIRECTOR 01/09/22 0950: CARDIAC CONSULT DATE OF CONSULT Date of Consult DATE: 01/09/22 TIME: 09:43 REASON FOR CONSULT Reason for Consult: Dyspnea on exertion Chest pain REFERRING PHYSICIAN Referring Physician: Dr. Byers SOURCE Source: Chart review, Patient HISTORY OF PRESENT ILLNESS HISTORY OF PRESENT ILLNESS This is a 61 yo male who presented secondary to shortness of breath and chest pain. Patient reports shortness upon exertion for the last couple of weeks. Has been progressive. For the last week, also experiencing shortness of breath at rest. Feels as if he cant take a deep breath. Has had some mild LE edema bilaterally. Over the last 3-4 days, has had sharp pains in his left chest with deep breathing. Has also had sharp pain in the center of his upper back when deep breathing. This will occur even with deep breathing at rest. No associated dizziness, diaphoresis, or nausea/vomiting. No recent illness of fevers. Does reports that he was been struggling with pain down his left leg for the last several months for which he has been taking Dilaudid, acetaminophen, and Lyrica. No previous h/o CAD or recent cardiac workup. PAST MEDICAL HISTORY Pulmonary: COPD GI: GERD, Other (Crohn's ) Heme/Onc: Cancer (lung- s/p wedge resection ) Musculoskeletal: Osteoarthritis, Other (DDD) Rheumatologic: Rheumatoid arthritis Endocrine: Diabetes PAST SURGICAL HISTORY Past Surgical History: Other (vasectomy, right middle lobe wedge resection) FAMILY HISTORY Family History: Diabetes, Hypertension SOCIAL HISTORY Smoke: Quit ALCOHOL: none Drugs: None Lives: with Family CURRENT MEDICATIONS CURRENT MEDICATIONS Current Medications Medications (Trade) Dose Ordered Sig/Rosa Route PRN Reason Start Time Stop Time Status Last Admin Dose Admin Pregabalin (Lyrica) 75 mg [id number] PO 01/09/22 02:30 01/09/22 08:46 DC 01/09/22 08:08 Hydromorphone HCl (Dilaudid) 2 mg Q6HRS PO 01/08/22 20:30 01/09/22 00:23 DC 01/08/22 20:39 Ibuprofen (Motrin) 800 mg Q6H PO 01/08/22 23:30 01/09/22 05:13 Pantoprazole Sodium (Protonix) 40 mg DAILYAC PO 01/09/22 07:30 01/09/22 08:07 Hydromorphone HCl (Dilaudid) 2 mg Q6H PO 01/09/22 02:30 01/09/22 08:07 ALLERGIES ALLERGIES: Coded Allergies: Iodinated Contrast Media (Verified Allergy, Severe, ALMOST KILLED HIM - ANAPHYLACTIC?, 10/20/15) HE CAN EAT SHELLFISH OR USE TOPICAL IODINE W/O PROBLEM doxycycline (Verified Allergy, Intermediate, RESPIRATORY PROBLEM, 10/20/15) ROS Review of System 14 point ROS conducted with pertinent positives noted above in HPI PHYSICAL EXAM General: Alert, Oriented X3, Cooperative, No acute distress HEENT: Atraumatic, Mucous membr. moist/pink Lungs: Other (diminished bases) Heart: Regular rate Abdomen: Soft, No tenderness Extremities: Other (trace pedal edema ) Skin: No significant lesion Neuro: Normal speech, Sensation intact Psych/Mental Status: Mental status NL, Mood NL MUSCULOSKELETAL: No deformity VITALS/I&O VITALS/I&O: Vital Signs Date Time Temp Pulse Resp B/P (MAP) Pulse Ox O2 Delivery O2 Flow Rate FiO2 01/09/22 08:41 Room Air 01/09/22 07:00 98.7 79 17 140/87 (104) 96 98.7 01/09/22 02:46 2.0 I & O 01/08/22 01/08/22 01/09/22 14:59 22:59 06:59 Intake Total 100 ml 400 ml Balance 100 ml 400 ml LABS Lab: Laboratory Tests Test 01/08/22 20:30 01/09/22 08:18 White Blood Count 12.1 x10^3/uL (4.0-11.0) H Red Blood Count 4.79 x10^6/uL (4.30-5.70) Hemoglobin 13.7 g/dL (13.0-17.5) Hematocrit 41.5 % (39.0-53.0) Mean Corpuscular Volume 87 fL (79-100) Mean Corpuscular Hemoglobin 29 pg (25-35) Mean Corpuscular Hemoglobin Concent 33 g/dL (31-37) Red Cell Distribution Width 14.0 % (11.5-14.5) Platelet Count 297 x10^3/uL (140-400) Neutrophils (%) (Auto) 68 % (31-73) Lymphocytes (%) (Auto) 18 % (24-48) L Monocytes (%) (Auto) 5 % (0-9) Eosinophils (%) (Auto) 8 % (0-3) H Basophils (%) (Auto) 1 % (0-3) Neutrophils # (Auto) 8.3 x10^3/uL (1.8-7.7) H Lymphocytes # (Auto) 2.2 x10^3/uL (1.0-4.8) Monocytes # (Auto) 0.6 x10^3/uL (0.0-1.1) Eosinophils # (Auto) 0.9 x10^3/uL (0.0-0.7) H Basophils # (Auto) 0.1 x10^3/uL (0.0-0.2) D-Dimer (Lilo) 1.83 ug/mlFEU (0.00-0.50) H Sodium Level 141 mmol/L (136-145) Potassium Level 3.9 mmol/L (3.5-5.1) Chloride Level 102 mmol/L (98-107) Carbon Dioxide Level 27 mmol/L (21-32) Anion Gap 12 (6-14) Blood Urea Nitrogen 16 mg/dL (8-26) Creatinine 1.3 mg/dL (0.7-1.3) Estimated GFR (Cockcroft-Gault) 56.1 BUN/Creatinine Ratio 12 (6-20) Glucose Level 209 mg/dL (70-99) H Calcium Level 9.0 mg/dL (8.5-10.1) Total Bilirubin 0.4 mg/dL (0.2-1.0) Aspartate Amino Transferase (AST) 11 U/L (15-37) L Alanine Aminotransferase (ALT) 13 U/L (16-63) L Alkaline Phosphatase 86 U/L (46-116) Troponin I High Sensitivity 16 ng/L (4-75) Total Protein 6.7 g/dL (6.4-8.2) Albumin 3.3 g/dL (3.4-5.0) L Albumin/Globulin Ratio 1.0 (1.0-1.7) SARS-CoV-2 Antigen (Rapid) Negative (NEGATIVE) Laboratory Tests 01/08/22 20:30 Laboratory Tests 01/08/22 20:30 ASSESSMENT/PLAN ASSESSMENT/PLAN 1. Chest pain, atypical; initial trop negative. Most probably pleuritic 2. Acute respiratory failure with moderate right pleural effusion. Cannot rule out component of CHF, although low suspicion 3. H/o lung CA s/p right wedge resection 4. COPD; clinically stable 5. Elevated d-dimer; VQ scan ordered 6. Diabetes, II 7. GERD Recommendations Trend trop Lipids EKG Doubt overt HF, but will check NT Pro BNP and give dose of IV Lasix. Echo to assess LV systolic function Consider for thoracentesis Probable outpatient ischemic evaluation Supportive care Further pending above ESTELLE RAPP MD 01/10/22 0409: CARDIAC CONSULT ASSESSMENT/PLAN ASSESSMENT/PLAN Late entry for 01/09/22 Pt. seen and examined. Agree with above DISHWASHING MACHINE OPERATOR note. Supportive care. Echo wnl. No further CV testing. Thanks EFREN SABA APRN Jan 09, 2022 09:50 ESTELLE RAPP MD Jan 10, 2022 04:09
--- NOTE | 2022-01-09 09:58 | RAD ---
Single view of the chest. 01/09/2022 8:50 AM Indication: Reason: dyspnea, chest pain Comparison: Chest radiograph December 01, 2019 Findings: There is a moderate right pleural effusion with underlying atelectasis or infiltrate. Some fluid noted tracking into the fissure. No pneumothorax is seen. Possible trace left pleural effusion noted. Heart size appears top normal. Bony thorax is grossly intact. IMPRESSION: Moderate right pleural effusion with underlying atelectasis or infiltrate. Electronically signed by: Hank Barboza MD (01/09/2022 9:55 AM) [id number]
[2022-01-09] MEDS ORDERED: ACYCLOVIR 200 MG CAPSULE. PO SCH (10:00)
[2022-01-09] MEDS ORDERED: PERFLUTREN PROTEIN-A MICROSPHR 0.22 MG/ML 3 ML VIAL. IV ONE (10:15)
[2022-01-09] MEDS ORDERED: POTASSIUM CHLORIDE 20 MEQ TABLET.ER. PO ONE (10:45)
[2022-01-09] MEDS ORDERED: FUROSEMIDE 40 MG/4 ML VIAL. IVP ONE (10:45)
[2022-01-09 11:00] VITALS: BP 151/98
[2022-01-09 11:24] LABS: CHOLESTEROL/HDL RATIO 4.5
--- NOTE | 2022-01-09 13:32 | RAD ---
CT of the chest without contrast 01/09/2022 INDICATION: Right pleural effusion. Dyspnea. COMPARISON STUDY: Chest radiograph, earlier today. TECHNIQUE: Multidetector CT imaging of the chest was performed without contrast. FINDINGS: Heart size is normal. No significant pericardial effusion is identified. With scattered sma ll mediastinal lymph nodes are noted, not pathologically enlarged by size criterion. Partially calcif ied lymph nodes. Present in the subcarinal region, somewhat poorly visualized. There is a large right pleural effusion with underlying compressive atelectasis. There is what may be postoperative changes following partial lung resection on the right. Correlate with operative history. Atelectasis involvi ng all lobes noted. Evaluation of the atelectatic lung is limited. An underlying infiltrate or other lesion is not excluded. There is no pneumothorax. IMPRESSION: Large right pleural effusion with underlying atelectasis. Consider repeat CT imaging fol lowing resolution of effusion to exclude underlying pathology CT DOSING PQRS STATEMENT: One or more of the following individualized dose reduction techniques were utilized for this examinat ion: 1. Automated exposure control 2. Adjustment of the mA and/or kV according to patient size 3. Use of iterative reconstruction technique Electronically signed by: Hank Barboza MD (01/09/2022 1:29 PM) [id number]
[2022-01-09 15:00] VITALS: BP 101/67
--- NOTE | 2022-01-09 15:07 | EKG ---
[facility] [address] [place] [address] Test Date: 2022-01-09 Test Time: 13:00:04 Pat Name: IVANNA MYERS Department: Room: 205 Gender: M Visiting Housekeeper: MARKEL : 1960 Requested By: FLORINDA LIU Order Number: [id number] Reading MD: Magnus Villar Measurements Intervals [place] Rate: 100 P: 92 W[place]: 166 QRS: -38 QRSD: 102 T: 54 QT: 348 QTc: 452 Interpretive Statements SINUS RHYTHM ABNORMAL LEFT AXIS DEVIATION LEFT ANTERIOR FASCICULAR BLOCK ABNORMAL ECG RI6.02 No previous ECG available for comparison Electronically Signed On 01-10-2022 8:28:48 CNC SERVICE TECHNICIAN by Magnus Villar
--- NOTE | 2022-01-09 16:45 | CONS ---
DATE OF CONSULTATION: 01/09/2022 PULMONARY CONSULTATION ATTENDING PHYSICIAN: Lenny Byers MD REASON FOR CONSULTATION: Pleural effusion, dyspnea, history of lung cancer. HISTORY OF PRESENT ILLNESS: The patient is a pleasant 61-year-old obese male with a BMI of 42.9. The patient has 40 years of tobaccoism. He quit 2 years ago. The patient was diagnosed with lung cancer in 11/2019. The patient was seen at . He underwent segmentectomy at that time. The patient then had a followup with Thoracic Surgery and was noticed to have a nodule. The patient then had another followup CT chest in September and then nodule had grown from 1.4 to 1.7 cm. At that time, the thoracic surgeon had offered him surgical resection versus radiation versus chemo, he declined. He has not had a followup CT since then. He was brought into the hospital with increasing shortness of breath. He denies any cough, fever or chills. Denies any leg edema. He has some right-sided chest pain with deep breaths. The patient underwent imaging study and I have reviewed the patient's CT chest. There is a moderate size right pleural effusion on the right side. There is no definite mass seen. There was associated atelectasis involving the right lower lobe. I have been asked to see him for further evaluation. PAST MEDICAL HISTORY: History of underlying obesity with a BMI of 42.9. History of COPD, could be severe. History of GERD, history of lung cancer diagnosed in 11/2019, status post wedge resection. Followed by CAT scans with a growing nodule. Last scan according to him was at and the nodule grew from 1.4 to 1.7 cm. History of rheumatoid arthritis, history of osteoarthritis and diabetes. PAST SURGICAL HISTORY: Vasectomy and right lower lobe wedge resection of which was a cancer. FAMILY HISTORY: Diabetes and hypertension. SOCIAL HISTORY: Tobaccoism for 40 years, quit 2 years ago. REVIEW OF SYSTEMS: Twelve-point review of system obtained. Pertinent positives discussed in my present illness, otherwise noncontributory. All systems that were negative were reviewed as well. MEDICATIONS: Reviewed as listed in the MRAD. FAMILY HISTORY: Noncontributory to lungs. PHYSICAL EXAMINATION: VITAL SIGNS: Reviewed. Blood pressure 101/67, afebrile, pulse ox 91% on room air. NECK: Supple. LUNGS: With diminished breath sounds, right base. He has a scar for VAT. CARDIOVASCULAR: With a regular rate. ABDOMEN: Soft, obese. EXTREMITIES: With trace pitting edema. LABORATORY DATA: Reviewed. White cell count 12.1. Hemoglobin 13.7, D-dimer 1.8. Chemistries were reviewed with a BUN of 16, creatinine 1.3. IMPRESSION: 1. Dyspnea with moderate to large right-sided pleural effusion in a patient who has history of known lung cancer. He underwent wedge resection in 11/2019. He then had followup scans by his thoracic surgeon at where he was noted to have a nodule, which grew in size from 1.4 to 1.7 cm in the right side. He did not follow up and at that time declined to have any further surgical resection or option for radiation. He now has a moderate to large right-sided pleural effusion that is strong clinical suspicion for metastatic lung cancer involving the pleura. 2. Underlying chronic obstructive pulmonary disease. 3. Underlying obesity. RECOMMENDATIONS: 1. Discussed with the patient that at this point, I would recommend doing diagnostic and therapeutic thoracentesis. 2. We will review the fluid for analysis. 3. We will repeat a CT chest once thoracentesis is performed to assess for underlying lung nodule. 4. Further recommendation and discussion post-thoracentesis analysis. The patient is agreeable to proceed with thoracentesis. 5. Discussed with RN. ELI/YONATAN FIELD: ELI/olivia TID: [id number]
--- NOTE | 2022-01-09 17:39 | CARD ---
MR#: [id number] Date of Study: 01/09/2022 Ordering Physician: FLORINDA LIU, Referring Physician: FLORINDA LIU Tech: Poonam Riojas DI APPROVED REPORT EXAM: Two-dimensional and M-mode echocardiogram with Doppler and color Doppler. Other Information Quality : Technically LimitedHR: 96bpm Rhythm : NSRTechnically limited study due to body habitus. INDICATION Dyspnea Echo Enhancing Agent Indication: Endocardial border delineation Agent/Amount Used: Optison 3mL RISK FACTORS Obesity Hyperlipidemia 2D DIMENSIONS RVDd3.7 (2.9-3.5cm)Left Atrium(2D)3.6 (1.6-4.0cm) IVSd1.2 (0.7-1.1cm)Aortic Root(2D)3.8 (2.0-3.7cm) LVDd4.0 (3.9-5.9cm)LVOT Diameter2.5 (1.8-2.4cm) PWd1.3 (0.7-1.1cm)LVDs3.0 (2.5-4.0cm) FS (%) 23.8 %SV33.6 ml LVEF(%)48.1 (>50%) Aortic Valve AoV Peak Ned.226.9cm/sAoV VTI38.9cm AO Peak GR.20.6mmHgLVOT Peak Ned.217.2cm/s AO Mean GR.10mmHgAVA (VMAX)4.78cm2 Mitral Valve MV E Bplwperj72.7cm/sMV DECEL [id number] MV A Yfwwcxha022.1cm/sE/A Ratio0.6 Pulmonary Valve PV Peak Uqmkdhit015.8cm/s Tricuspid Valve TR P. Ppclpjyj048ms/sTR Peak Gr.23mmHg LEFT VENTRICLE The left ventricle is normal size. There is mild concentric left ventricular hypertrophy. The left ve ntricular systolic function is normal and the ejection fraction is within normal range. EF 55% There is normal LV segmental wall motion. Transmitral Doppler flow pattern is Grade I-abnormal relaxation p attern. RIGHT VENTRICLE The right ventricle is normal size. There is normal right ventricular wall thickness. The right ventr icular systolic function is normal. ATRIA The left atrium size is normal. The right atrium size is normal. The interatrial septum is intact wit h no evidence for an atrial septal defect or patent foramen ovale as noted on 2-D or Doppler imaging. AORTIC VALVE The aortic valve is normal in structure and function. Doppler and Color Flow revealed no significant aortic regurgitation. There is no significant aortic valvular stenosis. MITRAL VALVE The mitral valve is normal in structure and function. There is no evidence of mitral valve prolapse. There is no mitral valve stenosis. Doppler and Color Flow revealed no mitral valve regurgitation note d. TRICUSPID VALVE The tricuspid valve is normal in structure and function. Doppler and Color Flow revealed no tricuspid valve regurgitation noted. There is no tricuspid valve stenosis. PULMONIC VALVE Doppler and Color Flow revealed no pulmonic valvular regurgitation. There is no pulmonic valvular sonia nosis. GREAT VESSELS The aortic root is mildly enlarged. The ascending aorta is normal in size. The IVC is normal in size and collapses >50% with inspiration. PERICARDIAL EFFUSION There is no evidence of significant pericardial effusion. Critical Notification Critical Value: No <Conclusion> The left ventricular systolic function is normal and the ejection fraction is within normal range. EF 55% There is normal LV segmental wall motion. Signed by : Danilo Wilkes, Electronically Approved : 01/09/2022 17:39:13
[2022-01-09 19:00] VITALS: BP 129/82
[2022-01-09 23:23] VITALS: BP 118/78
[2022-01-10] VITALS (7 sets, daily range): BP systolic 127–157; BP diastolic 72–83
[2022-01-10] MEDS: PREGABALIN 75 MG CAPSULE PO SCH ×2 (02:31→10:15)
[2022-01-10] MEDS: HYDROmorphone 2 MG TABLET PO SCH ×2 (02:31→08:28)
--- NOTE | 2022-01-10 02:39 | NUR ---
SpO2 only 89%; pt refusing to wear nasal cannula. States, "I'm like this all the time." Education provided. Will attempt to place oxygen when pt agreeable. Addendum: 01/10/22 at 0241 by STEVE MERCEDES RN Amended: Links added.
[2022-01-10] MEDS: IBUPROFEN 400 MG TABLET. PO SCH ×2 (05:40→11:32)
--- NOTE | 2022-01-10 08:07 | PDOC ---
Provider Note Date of Service: DATE: 01/10/22 TIME: 08:05 Provider Note R pleural effusion is source of dyspnea- echo fine, labs ok- for thoracentesis today as source likely related to prior lung CA, followed at [facility] so far Justifications for Admission Other Justification FLORINDA LIU MD Jan 10, 2022 08:07
[2022-01-10] MEDS: PANTOPRAZOLE 40 MG TABLET.DR. PO SCH (08:28)
--- NOTE | 2022-01-10 08:37 | PDOC ---
Provider Note Date of Service: DATE: 01/10/22 TIME: 08:36 Provider Note [id number] Justifications for Admission Other Justification FLORINDA LIU MD Jan 10, 2022 08:37
[2022-01-10] MEDS ORDERED: ACYCLOVIR 200 MG CAPSULE. PO SCH (09:00)
--- NOTE | 2022-01-10 09:11 | DS ---
DATE OF DISCHARGE: 01/10/2022 HOSPITAL SUMMARY: A 61-year-old white male admitted with progressive orthopnea, exertional dyspnea and left-sided chest pain, raising the suspicion of angina or even pulmonary embolus. He has a history of right-sided lung cancer and is followed at [facility] for this. CBC and chemistry profile were unremarkable. Troponin was normal as was TSH and lipid profile. Chest x-ray showed a large right pleural effusion. CT scan confirmed a large right pleural effusion, but no underlying mass seen and no sign of pulmonary emboli. Echocardiogram was all within normal limits. He is having a therapeutic and diagnostic thoracentesis today as suspected source of the effusion is right-sided lung cancer that has been followed as an outpatient at without treatment so far. He requests to be discharged after the procedure and will be followed at for this. FINAL DIAGNOSIS: Right-sided pleural effusion, likely secondary to underlying lung malignancy. OPERATIONS, PROCEDURES AND COMPLICATIONS: Diagnostic and therapeutic thoracentesis. CONSULTATION: Dr. Desouza, Dr. Wilkes. DISPOSITION: Home meds all remain the same. He will follow up with Dr. Desouza based on pleural fluid results and then [facility] for his Oncology because he will consider the option of radiation to perhaps alleviate recurrence of the fluid versus pleurodesis. Prognosis is guarded. ELAINE/CARLOS FIELD: Vipul TID: [id number]
--- NOTE | 2022-01-10 10:08 | PDOC ---
PULMONARY PROGRESS NOTES DATE: 01/10/22 TIME: 10:05 Subjective Patient is resting comfortably on room air, denies any increased shortness of breath or cough Patient states he is ready to discharge today and does not want to stay another night in the hospital. Vitals Vital Signs Date Time Temp Pulse Resp B/P (MAP) Pulse Ox O2 Delivery O2 Flow Rate FiO2 01/10/22 09:59 106 18 136/72 (93) 92 Room Air 01/10/22 07:00 98.2 98.2 ROS: No Nausea, No Chest Pain, No Abdominal Pain, No Increase Cough General: Alert, Oriented X4 Lungs: Other (Decreased breath sounds right lower lobe) Cardiovascular: S1, S2 Abdomen: Soft, Other (Obese) Neuro Exam: Alert, Oriented Skin: Warm, Dry Labs Laboratory Tests Test 01/08/22 20:30 01/09/22 08:18 01/09/22 10:35 White Blood Count 12.1 x10^3/uL (4.0-11.0) Red Blood Count 4.79 x10^6/uL (4.30-5.70) Hemoglobin 13.7 g/dL (13.0-17.5) Hematocrit 41.5 % (39.0-53.0) Mean Corpuscular Volume 87 fL (79-100) Mean Corpuscular Hemoglobin 29 pg (25-35) Mean Corpuscular Hemoglobin Concent 33 g/dL (31-37) Red Cell Distribution Width 14.0 % (11.5-14.5) Platelet Count 297 x10^3/uL (140-400) Neutrophils (%) (Auto) 68 % (31-73) Lymphocytes (%) (Auto) 18 % (24-48) Monocytes (%) (Auto) 5 % (0-9) Eosinophils (%) (Auto) 8 % (0-3) Basophils (%) (Auto) 1 % (0-3) Neutrophils # (Auto) 8.3 x10^3/uL (1.8-7.7) Lymphocytes # (Auto) 2.2 x10^3/uL (1.0-4.8) Monocytes # (Auto) 0.6 x10^3/uL (0.0-1.1) Eosinophils # (Auto) 0.9 x10^3/uL (0.0-0.7) Basophils # (Auto) 0.1 x10^3/uL (0.0-0.2) D-Dimer (Lilo) 1.83 ug/mlFEU (0.00-0.50) Sodium Level 141 mmol/L (136-145) Potassium Level 3.9 mmol/L (3.5-5.1) Chloride Level 102 mmol/L (98-107) Carbon Dioxide Level 27 mmol/L (21-32) Anion Gap 12 (6-14) Blood Urea Nitrogen 16 mg/dL (8-26) Creatinine 1.3 mg/dL (0.7-1.3) Estimated GFR (Cockcroft-Gault) 56.1 BUN/Creatinine Ratio 12 (6-20) Glucose Level 209 mg/dL (70-99) Calcium Level 9.0 mg/dL (8.5-10.1) Total Bilirubin 0.4 mg/dL (0.2-1.0) Aspartate Amino Transf (AST/SGOT) 11 U/L (15-37) Alanine Aminotransferase (ALT/SGPT) 13 U/L (16-63) Alkaline Phosphatase 86 U/L (46-116) Troponin I High Sensitivity 16 ng/L (4-75) 13 ng/L (4-75) Total Protein 6.7 g/dL (6.4-8.2) Albumin 3.3 g/dL (3.4-5.0) Albumin/Globulin Ratio 1.0 (1.0-1.7) Coronavirus (COVID-19)(PCR) Not detected (NOT DETECTD) SARS-CoV-2 Antigen (Rapid) Negative (NEGATIVE) [id number]-Jtf-[id number]-Type Natriuretic Peptide 118 pg/mL (0-124) Triglycerides Level 142 mg/dL (0-150) Cholesterol Level 188 mg/dL (0-200) LDL Cholesterol, Calculated 118 mg/dL (0-100) VLDL Cholesterol, Calculated 28 mg/dL (0-40) Non-HDL Cholesterol Calculated 146 mg/dL (0-129) HDL Cholesterol 42 mg/dL (40-60) Cholesterol/HDL Ratio 4.5 Thyroid Stimulating Hormone (TSH) 2.500 uIU/mL (0.358-3.74) Laboratory Tests Test 01/09/22 10:35 Troponin I High Sensitivity 13 ng/L (4-75) KG-Xpu-Y-Type Natriuretic Peptide 118 pg/mL (0-124) Triglycerides Level 142 mg/dL (0-150) Cholesterol Level 188 mg/dL (0-200) LDL Cholesterol, Calculated 118 mg/dL (0-100) VLDL Cholesterol, Calculated 28 mg/dL (0-40) Non-HDL Cholesterol Calculated 146 mg/dL (0-129) HDL Cholesterol 42 mg/dL (40-60) Cholesterol/HDL Ratio 4.5 Thyroid Stimulating Hormone (TSH) 2.500 uIU/mL (0.358-3.74) Medications Active Scripts Medications Dose Route/Sig Max Daily Dose Days Date Category Dose Instructions Acyclovir 200 Mg Capsule 1 Cap PO DAILY 12/04/21 Reported Vitamin D3 (Vitamin D) 25 Mcg Tablet 25 Mcg PO DAILY 12/01/21 Reported 1,000 UNITS = 25 MCG Percocet 10-325 Mg Tablet (Oxycodone/Acetaminophen) 1 Each Tablet 1 Tab PO PRN Q6HRS PRN 12/01/21 Reported Lyrica (Pregabalin) 150 Mg Capsule 150 Mg PO TID 30 12/01/21 Reported Liberty 7.5-325 Tablet (Acetaminophen/Hydrocodone Bitart) 1 Each Tablet 1-2 Tab PO PRN Q6HRS PRN 10/20/15 Rx Daily Value (Multivitamin) 1 Each Tablet 1 Each PO DAILY 10/20/15 Reported Claritin (Loratadine) 10 Mg Tablet 1 Tab PO DAILY 10/20/[address] chest IMPRESSION: Large right pleural effusion with underlying atelectasis. Consider repeat CT imaging following resolution of effusion to exclude underlying pathology Impression . IMPRESSION: 1. Dyspnea with moderate to large right-sided pleural effusion in a patient who has history of known lung cancer. He underwent wedge resection in 11/2019. He then had followup scans by his thoracic surgeon at where he was noted to have a nodule, which grew in size from 1.4 to 1.7 cm in the right side. He did not follow up and at that time declined to have any further surgical resection or option for radiation. He now has a moderate to large right-sided pleural effusion that is strong clinical suspicion for metastatic lung cancer involving the pleura. 2. Underlying chronic obstructive pulmonary disease. 3. Underlying obesity. Plan . Updated 01/10/2022 Patient is plan for right-sided thoracentesis today with IR, follow pleural fluid analysis Patient does not want to return to for any type of follow-up reports that he does not want to have any type of hematology/oncology treatment for chemo or radiation should his pleural fluid results in positive pathology. He reports that he would want to proceed with a Pleurx catheter if his effusion were to recurrent Hypertension per PCP Repeat CT chest in 6 to 8 weeks to follow-up for underlying lung nodule DVT/GI prophylaxis Discussed with RN Okay to discharge from our standpoint after completion of thoracentesis RECOMMENDATIONS: 1. Discussed with the patient that at this point, I would recommend doing diagnostic and therapeutic thoracentesis. 2. We will review the fluid for analysis. 3. We will repeat a CT chest once thoracentesis is performed to assess for underlying lung nodule. 4. Further recommendation and discussion post-thoracentesis analysis. The patient is agreeable to proceed with thoracentesis. 5. Discussed with RN. VIKKI GASPAR MD Jan 10, 2022 10:08
--- NOTE | 2022-01-10 10:39 | RAD ---
Right Thoracentesis 01/10/2022 9:45 AM Clinical History: Right pleural effusion. Technique: Relative benefits risks and alternatives were discussed with the patient and/or their rep resentative. Written informed consent was obtained. The patient was placed in seated position. A linda eout procedure was performed. Sonographic assessment demonstrates a large pleural effusion. A site for skin entry was selected, and subsequently prepped and draped using sterile barrier technique. 1% lidocaine without epinepherine was administered for local anesthesia to the skin and subcutaenous tissues. A 5 Slovenian sheathed needle was passed into the pleural space. Clear yellow fluid was aspirated and t he catheter was connected to a vacuum. Approximately 2 liters of fluid were drained. The catheter was removed and adequate hemostasis was obtained. A sterile dressing was applied. The patient tolerated the procedure well, without complications. Impression: Successful ultrasound guided thoracentesis with removal of2 liters of fluid. Electronically signed by: Hank Barboza MD (01/10/2022 10:37 AM) [id number]
--- NOTE | 2022-01-10 12:05 | PDOC ---
JOHNATHON REYES BILINGUAL ACCOUNT MANAGER 01/10/22 1205: CARDIO Progress Notes Date and Time Date of Service 01/10/2022 Time of Evaluation 1150 Subjective Subjective: No Chest Pain, No shortness of breath, No Palpitations Vitals Vitals Vital Signs Date Time Temp Pulse Resp B/P (MAP) Pulse Ox O2 Delivery O2 Flow Rate FiO2 01/10/22 11:00 97.7 100 16 137/80 (99) 91 Room Air 97.7 Weight Weight [ ] Input and Output Intake and Output Intake and Output 01/10/22 07:00 Intake Total 1560 ml Output Total 2150 ml Balance -590 ml Intake Oral 1560 ml Output Urine Total 2150 ml # Voids 3 Physical Exam HEENT: Neck Supple W Full Motion Chest: Symmetric LUNGS: Other (diminished bases) Heart: RRR Abdomen: Soft N/T, Other (truncal obesity) Extremities: No Calf Tenderness Neurology: alert, oriented, follow commands Assessment Assessment 1. Chest pain, atypical; initial trop negative. Most probably pleuritic. EF and WM nml per TTE 2. Acute respiratory failure with moderate right pleural effusion. better after thoracentesis. per pulmonary 3. H/o lung CA s/p right wedge resection 4. COPD; clinically stable 5. Elevated d-dimer; VQ scan ordered 6. Diabetes, II 7. GERD Recommendations 1. Continue current regimen 2. No further cardiac workup may Dc from cardiac perspective. Justicifation of Admission Dx: Justifications for Admission: Justification of Admission Dx: Yes ESTELLE RAPP MD 01/10/22 1425: JOHNATHON REYES APRN Jan 10, 2022 12:05 ESTELLE RAPP MD Jan 10, 2022 14:25
--- NOTE | 2022-01-10 12:06 | NUR ---
SS following for discharge planning. SS reviewed pt chart and discussed with pt RN. Pt is from home with spouse and is currently on room air. COVID19 negative. Discharge order on the chart for home with self care.
--- NOTE | 2022-01-10 12:37 | NUR ---
Discharge Note: PT DISCHARGED HOME WITH SELF CARE. PT LEFT FACILITY VIA PRIVATE VEHICLE WITH AT 1215. PT STABLE AND ALERT UPON DISCHARGE. PT PIV REMOVED FROM L HAND WITHOUT COMPLICATIONS, BANDAGE APPLIED. PT EDUCATED ABOUT DISCHARGE INSTRUCTIONS, DISCHARGE MEDICATIONS, AND FOLLOW-UP CARE INSTRUCTIONS, NO CONCERNS VOICED AT THIS TIME. PT LEFT WITH ALL PERSONAL BELONGINGS. IVANNA MYERS Discharge instructions and discharge home medications reviewed with Patient and a copy given. All questions have been answered and understanding verbalized.
--- NOTE | 2022-01-14 12:38 | HP ---
DATE OF SERVICE: 01/09/2022 ADMIT DATE: 01/08/2022 CHIEF COMPLAINT: Dyspnea on exertion. HISTORY OF PRESENT ILLNESS: A 61-year-old white male with 3 or 4 days of shortness of breath, orthopnea, LARA and some sharp left upper chest pain associated with activity . He has had no cough, fever, hemoptysis is getting a second opinion regarding possible spinal stimulator versus other options. He is currently taking Dilaudid for pain. He has prediabetes as his main other medical problem. SOCIAL HISTORY: Quit smoking 2 years ago after about 30 pack years. He is , employed part-time, nondrinker. FAMILY HISTORY: Unremarkable. REVIEW OF SYSTEMS: No other complaints. OBJECTIVE: ENT: All within normal limits. NECK: No nodes, masses, or thyroid enlargement. CARDIOVASCULAR: Regular rate. No tachycardia or murmur. ABDOMEN: Obese, benign. EXTREMITIES: Unremarkable. NEUROLOGIC: Physiologic except for reduced L4 sensation and some left quadriceps weakness. ASSESSMENT: Chest pain, dyspnea, suspicious for possible diagnoses including pulmonary embolus or unstable angina. PLAN: Discontinue . Cardiology consultation for possible Lexiscan if these symptons are normal. [facility] [place] DR: ELAINE/olivia TID: [id number]
--- NOTE | 2022-01-16 11:09 | PATHOLOGY ---
Note [facility] Accession Number: [id number] TESTS RESULT FLAG UNITS REF RANGE LAB Clinician Provided Cytology Information No. of containers..01 Other (Miscellaneous) Source: RIGHT PLEURAL FLUID DIAGNOSIS: RIGHT PLEURAL FLUID INCONCLUSIVE. FEW ATYPICAL CELLS PRESENT, WHICH ARE CALRETININ POSITIVE, AND BEREP4 AND TTF-1 NEGATIVE, CONSISTENT WITH REACTIVE MESOTHELIAL CELLS. MESOTHELIAL CELLS ARE PRESENT. THE CASE IS ALSO EXAMINED BY DR. MARTINEZ, WHO CONCURS WITH THE DIAGNOSIS. THIS EVALUATION INCLUDES EXAMINATION OF A CELL BLOCK. Signed out by: Oli Pineda MD, Pathologist NPI- [id number] Performed by: Fabiana Castillo, Senior Product Manager ([facility]) Gross description: 01 30ML, UGARTE, CLEAR /LCS 01/11/2022 1756 Local FLAG LEGEND: L-Low Normal,H-High Normal,LL-Alert Low,HH-Alert High <-Panic Low,>-Panic High,A-Abnormal,AA-Critical Abnormal Performed at: [facility] [address] [place] [address] Oliver Martinez MD, [address] [facility] [address] [place] [address] Oli Pineda MD, Specimen Comment: A courtesy copy of this report has been sent to [phone], [phone] Specimen Comment: [id number], Specimen Comment: Report sent to , DR GASPAR / DR LIU Performed at: [address], [place], [place] [id number] MD Oliver Martinez MD Phone: [phone]
== END 2022-01-10 12:15 | disposition home or self-care (01) | DRG 180 ==
LOC: 2 NORTH 19:36
PROVIDERS: ADMIT Family Medicine; ATTEND Family Medicine
PROC: 0W993ZZ Drainage of Right Pleural Cavity, Percutaneous Approach (ICD-10-PCS; principal; 2022-01-10)
DX: C34.91 Malignant neoplasm of unspecified part of right bronchus or lung (principal); J96.00 Acute respiratory failure, unspecified whether with hypoxia or hypercapnia; J90 Pleural effusion, not elsewhere classified; J98.11 Atelectasis; Z68.41 Body mass index [BMI] 40.0-44.9, adult; E11.9 Type 2 diabetes mellitus without complications; E66.9 Obesity, unspecified; J44.9 Chronic obstructive pulmonary disease, unspecified; K21.9 Gastro-esophageal reflux disease without esophagitis; M06.9 Rheumatoid arthritis, unspecified; Z82.49 Family history of ischemic heart disease and other diseases of the circulatory system; Z83.3 Family history of diabetes mellitus; Z85.118 Personal history of other malignant neoplasm of bronchus and lung; Z87.891 Personal history of nicotine dependence; M19.90 Unspecified osteoarthritis, unspecified site; Z20.822 Contact with and (suspected) exposure to COVID-19; Z88.8 Allergy status to other drugs, medicaments and biological substances; R07.89 Other chest pain
CPT/HCPCS: 32555; 36415; 71045; 71250; 80053; 80061; 83615; 83880; 84157; 84443; 84484; 85025; 85379; 87075; 87426; 88112; 88305; 93005; A4615; C8929; G0379; J1940; Q9956; U0003

== ENCOUNTER 2022-01-19 05:47 | Inpatient (IN) | payer MEDICARE ==
[~2022-01-19] VITALS: Ht 167.6 cm; Wt 121.4 kg
[2022-01-19 06:23] LABS: BASO # 0.2 x10^3/uL (0.0-0.2); BASO % 2 % (0-3); EOS # 1.2 x10^3/uL (0.0-0.7); EOS % 10 % (0-3); HEMATOCRIT 42.2 % (39.0-53.0); HEMOGLOBIN 13.7 g/dL (13.0-17.5); LYMPH # 3.1 x10^3/uL (1.0-4.8); LYMPH % 26 % (24-48); MEAN CORPUSCULAR HEMOGLOBIN 29 pg (25-35); MEAN CORPUSCULAR HGB CONC 33 g/dL (31-37); MEAN CORPUSCULAR VOLUME 88 fL (79-100); MONO # 0.8 x10^3/uL (0.0-1.1); MONO % 7 % (0-9); NEUT # 6.4 x10^3/uL (1.8-7.7); NEUT % 55 % (31-73); PLATELET COUNT 343 x10^3/uL (140-400); RED BLOOD COUNT 4.79 x10^6/uL (4.30-5.70); RED CELL DISTRIBUTION WIDTH 14.6 % (11.5-14.5); WHITE BLOOD COUNT 11.6 x10^3/uL (4.0-11.0)
[2022-01-19 06:26] LABS: CALCIUM 8.6 mg/dL (8.5-10.1); CREATININE 1.3 mg/dL (0.7-1.3); GFR 56.1
[2022-01-19] MEDS ORDERED: DEXAMETHASONE SOD PHOS 20 MG/5 ML VIAL. IV ONE (06:30)
[2022-01-19] MEDS ORDERED: IPRATRPIUM/ALBUTEROL 0.5/2.5MG 3 ML NEBU. NEB ONE (06:30)
[2022-01-19 06:32] LABS: ALBUMIN/GLOBULIN RATIO 0.8 (1.0-1.7); TOTAL BILIRUBIN 0.4 mg/dL (0.2-1.0); TOTAL PROTEIN 6.9 g/dL (6.4-8.2)
--- NOTE | 2022-01-19 06:39 | RAD ---
AP chest x-ray HISTORY: Dyspnea, right lung tumor resected. COMPARISON: CT chest January 09, 2022 FINDINGS: Heart size stable. No pneumothorax. Moderate right-sided pleural effusion with collapse or consolidation of the right lung base has worsened. Left lung clear. IMPRESSION: Moderate right pleural effusion has increased and there is collapse/consolidation of the right lung base which has worsened. Electronically signed by: Maxi Acevedo MD (01/19/2022 6:37 AM) [facility]
--- NOTE | 2022-01-19 06:52 | PHYS DOC ---
Past Medical History Additional Past Medical Histor: Back pain/problems Past Surgical History: Other Additional Past Surgical Histo: Tumor removed from right lung 2019, back surgery, neck surgery, vasectomy Smoking Status: Former Smoker Alcohol Use: Rarely General Adult EDM: Chief Complaint: SHORTNESS OF BREATH HPI: HPI: 61 yo M past medical history former tobacco abuse/COPD, GERD, rheumatoid ar thritis, osteoarthritis, diabetes and lung cancer status post wedge resection/segmentectomy in November 2019 at , presents to the ED sent in by primary care physician Dr. Florinda Liu, with complaints of worsening shortness of breath. Patient had thoracentesis performed in the past week. It was reviewed and pathology reports were inconclusive, concerning for mesothelial cells. Review of Systems: Review of Systems: Constitutional: Denies fever or chills. [] Eyes: Denies change in visual acuity. [] HENT: Denies nasal congestion or sore throat. [] Respiratory: Denies cough or hemoptysis Cardiovascular: Denies chest pain or edema. [] GI: Denies abdominal pain, nausea, vomiting, bloody stools or diarrhea. [] : Denies dysuria or hematuria Musculoskeletal: Denies back pain or joint pain. [] Integument: Denies rash or diaphoresis Neurologic: Denies headache, focal weakness or sensory changes. [] Endocrine: Denies polyuria or polydipsia. [] Lymphatic: Denies swollen glands. [] Psychiatric: Denies depression or anxiety. [] Heart Score: C/O Chest Pain: No Risk Factors: Risk Factors: DM, Current or recent (<one month) smoker, HTN, HLP, family history of CAD, obesity. Risk Scores: Score 0 - 3: 2.5% MACE over next 6 weeks - Discharge Home Score 4 - 6: 20.3% MACE over next 6 weeks - Admit for Clinical Observation Score 7 - 10: 72.7% MACE over next 6 weeks - Early Invasive Strategies Current Medications: Current Medications Medications (Trade) Dose Ordered Sig/Rosa Start Time Stop Time Status Last Admin Dose Admin Albuterol/ Ipratropium (Duoneb) 9 ml 1X ONCE 01/19/22 06:30 01/19/22 06:31 DC Dexamethasone Sodium Phosphate (Decadron) 10 mg 1X ONCE 01/19/22 06:30 01/19/22 06:31 DC Allergies: Allergies: Allergies Coded Allergies Type Severity Reaction Last Updated Verified Iodinated Contrast Media Allergy Severe ALMOST KILLED HIM - ANAPHYLACTIC? 01/19/22 Yes doxycycline Allergy Severe RESPIRATORY PROBLEM 01/19/22 Yes Physical Exam: PE: Constitutional: Well developed, well nourished, no acute distress, non-toxic appearance. HENT: Normocephalic, atraumatic, Eyes: EOMI, conjunctiva normal, no discharge. Neck: Normal range of motion, supple, Cardiovascular: S1/2 present, tachycardia on arrival Lungs & Thorax: Speaking in full sentences, bilateral equal chest rise, tachypn ea present with mild increased work of breathing, bilateral expiratory wheezing, rales right lower lung, scar midaxillary line/thoracic level 7 (prior resection scar), requiring NC Abdomen: soft, no tenderness, obese Skin: Warm, dry, no erythema, no rash. [] Extremities: No tenderness, no cyanosis, equal lower extremity edema Neurologic: Alert and oriented X 3, normal motor function, normal sensory function, no focal deficits noted. [] Psychologic: Affect normal, judgement normal, mood normal. [] Current Patient Data: Labs: Laboratory Tests Test 01/19/22 05:00 Sodium Level 143 mmol/L (136-145) Potassium Level 4.0 mmol/L (3.5-5.1) Chloride Level 105 mmol/L (98-107) Carbon Dioxide Level 28 mmol/L (21-32) Anion Gap 10 (6-14) Blood Urea Nitrogen 19 mg/dL (8-26) Creatinine 1.3 mg/dL (0.7-1.3) Estimated GFR (Cockcroft-Gault) 56.1 BUN/Creatinine Ratio 15 (6-20) Glucose Level 139 mg/dL (70-99) H Calcium Level 8.6 mg/dL (8.5-10.1) Total Bilirubin 0.4 mg/dL (0.2-1.0) Aspartate Amino Transferase (AST) 11 U/L (15-37) L Alanine Aminotransferase (ALT) 15 U/L (16-63) L Alkaline Phosphatase 82 U/L (46-116) Creatine Kinase 81 U/L (39-308) Troponin I High Sensitivity 8 ng/L (4-75) ZH-Kqu-V-Type Natriuretic Peptide 105 pg/mL (0-124) Total Protein 6.9 g/dL (6.4-8.2) Albumin 3.0 g/dL (3.4-5.0) L Albumin/Globulin Ratio 0.8 (1.0-1.7) L Laboratory Tests 01/19/22 05:00 Vital Signs: Vital Signs Date Time Temp Pulse Resp B/P (MAP) Pulse Ox O2 Delivery O2 Flow Rate FiO2 01/19/22 05:51 98.1 107 28 161/84 (109) 92 Room Air 98.1 EKG: EKG: Sinus rhythm 93 bpm, left axis deviation, normal intervals, no T wave inversion, no ST elevation, slight ST segment depression in aVL, no active chest pain Radiology/Procedures: Radiology/Procedures: IMAGING REPORT Signed PATIENT: IVANNA MYERS ACCOUNT: [id number] : 1960 LOCATION: ER AGE: 61 SEX: M EXAM STATUS: REG ER ORD. PHYSICIAN: YOANA CHAMPAGNE DO REASON: dyspnea,HX RT LUNG TUMOR REMOVED PROCEDURE: PORTABLE CHEST 1V AP chest x-ray HISTORY: Dyspnea, right lung tumor resected. COMPARISON: CT chest January 09, 2022 FINDINGS: Heart size stable. No pneumothorax. Moderate right-sided pleural effusion with collapse or consolidation of the right lung base has worsened. Left lung clear. IMPRESSION: Moderate right pleural effusion has increased and there is collapse/consolidation of the right lung base which has worsened. Electronically signed by: Mecca Acevedo MD (01/19/2022 6:37 AM) [facility] [place] DICTATED and SIGNED BY: MECCA ACEVEDO MD DATE: 01/19/22 0635 Course & Med Decision Making: Course & Med Decision Making Pertinent Labs and Imaging studies reviewed. (See chart for details) Concern for dyspnea of moderate right recurrent pleural effusion. Patient declined breathing treatments. I spoke to Dr. Florinda Liu, concern for malignant pleural effusion. Unable to perform CTA of the chest due to iodine allergy. V/Q scan ordered 2/2 H&P regarding eval for PE on past admission-I d/w Dr. Liu, to hold off for now until effusion can be drained. IR and pulmonology consults placed, will likely need chest tube. Will admit for further medical management. Patient stable time of admission agrees with this plan. I have spoken with the patient and/or caregivers. I have explained the patient 's condition, diagnosis and treatment plan based on the information available to me at this time. I have answered the patient's and/or caregivers questions and answered any concerns. The patient and/or caregivers have as good an understanding of the patient's diagnosis, condition and treatment plan as can be expected at this point. The patient has been stabilized within the capability of the emergency department. The patient will be transported for further care and management or will be moved to an observation or inpatient service. I have communicated with the staff or medical practitioner taking over this patient's care. Dragon Disclaimer: Dragon Disclaimer: This electronic medical record was generated, in whole or in part, using a voice recognition dictation system. Departure Departure Impression: Primary Impression: Dyspnea Additional Impression: Recurrent right pleural effusion Disposition: ADMITTED INPATIENT Admitting Physician: Florinda Liu Condition: STABLE Referrals: FLORINDA LIU MD (PCP) BERONICA RAO DO Jan 19, 2022 06:52
[2022-01-19 08:00] LABS: % BANDS 1 % (0-9); % BASOS 3 % (0-3); % EOS 11 % (0-5); % LYMPHS 22 % (24-48); % MONOS 3 % (0-10); % SEGS 60 % (35-66)
[2022-01-19 08:01] LABS: PLT ESTIMATE ADEQUATE (ADEQUATE)
[2022-01-19 09:28] VITALS: BP 132/96
[2022-01-19 11:12] VITALS: BP 134/85
[2022-01-19 11:26] LABS: PROTHROMBIN TIME PATIENT 13.2 SEC (11.7-14.0)
[2022-01-19] MEDS ORDERED: FUROSEMIDE 40 MG/4 ML VIAL. IVP ONE (11:30)
--- NOTE | 2022-01-19 13:00 | NUR ---
Consults called to Dr. Bonner (interventional radiology) and Dr. Bruner (pulmonary). Order received from Dr. Bonner for stat INR. Order received from Dr. Bruner to order thoracentesis vs. chest tube placement and to give 40mg IV lasix x1 dose. Nursing supervisor braiding notified, INR came back at 1.0, called to Dr. Barnett (Dr. Bonner's associate). Consent signed for image guided thoracentesis.
--- NOTE | 2022-01-19 14:03 | HP ---
DATE OF SERVICE: 01/19/2022 ADMIT DATE: 01/19/2022 CHIEF COMPLAINT AND HISTORY OF PRESENT ILLNESS: This 61-year-old male patient of Dr. Byers'rosalina who presented to the Emergency Room with shortness of breath. Approximately 9 days earlier, the patient had right thoracocentesis with removal of fluid for shortness of breath with equivocal cytology. By listening, this has certainly recurred and is the reason for this admission with shortness of breath and x-rays confirmed the same. He does have a history of non-small cell carcinoma with resection in his right lung some 2 years ago and no Oncology followup. Following that as he currently states he is not interested in anything Oncology would want to do as he has seen people before, it could make them sicker. After a long discussion with him, he is agreeable to at least an Oncology consultation as an outpatient to see what other options are available assuming this is recurrent non-small cell carcinoma, which is likely the cause of his pleural effusion. PAST MEDICAL HISTORY: Remarkable for lumbar spine problems with prior surgery. He has constant pain down his left leg in a radicular pattern for which he takes Lyrica, ibuprofen and Dilaudid at home and is adamant about having a surgery to fix this so the rest of his days on this earth could be more pleasant. He has a history of the right lung cancer, prior back surgery and a vasectomy. MEDICATIONS: Brought with the patient, listed on the computer, have been addressed. ALLERGIES: HE IS ALLERGIC TO IODINE, DOXYCYCLINE. SOCIAL HISTORY: He is a former smoker, rarely drinks alcohol. Does not use drugs and has to walk his daughter down the aisle to be at 2 weeks from now. FAMILY HISTORY: Noncontributory. REVIEW OF SYSTEMS: As mentioned above and mainly present for the leg pain, but more so the shortness of breath even at rest. PHYSICAL EXAMINATION: GENERAL: He is a well-developed, well-nourished white male who is intermittently short of breath. He is on 4 liters per nasal cannula oxygen. HEAD, EYES, EARS, NOSE AND THROAT: Otherwise unremarkable. NECK: Supple, without adenopathy or thyromegaly. CHEST: Reveals decreased breath sounds at least two-thirds of the way up the right chest. HEART: Regular rate and rhythm without S3, S4 or murmur. ABDOMEN: Soft, nontender, without hepatosplenomegaly or mass. EXTREMITIES: Without cyanosis, clubbing, edema. NEUROLOGIC: He is intact. LABORATORY DATA: INR is 1.0, which Interventional Radiology was waiting for prior to doing thoracocentesis for symptomatic relief. He has heard about PleurX catheter and would like to have one of these, which I think is rational until further plans can be made on what to do for this recurrent fluid as well as repeating cytology at this point to see if some sort of answers given. Chest x-ray shows a moderate right pleural effusion that has increased and there is collapse/consolidation of the right base, which has worsened. ASSESSMENT: 1. Shortness of breath due to pleural effusion, likely malignant with workup to date equivocal. 2. Shortness of breath. 3. Chronic left radicular leg pain. PLAN: Thoracocentesis with probably PleurX drain, repeat fluid cytology. Oncology consult as an outpatient to discuss his options and the patient will be monitored, managed and treated appropriately. [facility] [place]: Se TID: [id number] CC: FLORINDA BYERS MD
[2022-01-19] MEDS ORDERED: IBUP-1060 PO (14:42)
[2022-01-19] MEDS ORDERED: HYDR2TAB31 PO (14:42)
[2022-01-19] MEDS ORDERED: HYDROmorphone 2 MG TABLET PO SCH (15:00)
[2022-01-19] MEDS ORDERED: PREGABALIN 75 MG CAPSULE PO SCH (15:00)
[2022-01-19] MEDS ORDERED: ACYCLOVIR 200 MG CAPSULE. PO SCH (15:00)
[2022-01-19 15:55] VITALS: BP 115/88
--- NOTE | 2022-01-19 15:57 | RAD ---
Exam performed: Ultrasound guided right thoracentesis. Indication: Recurrent right pleural effusion. Date of Service: 01/19/2022. A chest x-ray performed 01/19/2022 at 6:26 AM was reviewed. Discussion: The procedure was explained to the patient and informed consent was are obtained. Patient's INR was 1 .0. Preliminary ultrasound demonstrates a moderate-sized right pleural effusion. A site was marked on the right posterior chest for subsequent introduction of needle. The part was prepped and draped in the u sual sterile fashion Local anesthesia was given. There after Yueh needle-was advanced the premarked s ite into the fluid pocket under direct ultrasound guidance. Slight blood-tinged fluid was return. Th ere after approximately 650 cc was collected in vacuum bottles. After removing the catheter, dry sterile Band-Aid was applied at the puncture site. Patient tolerated the procedure well and no immediate complications were encountered. Impression: 1. Ultrasound guided right thoracentesis with removal of 650cc of slight blood-tinged fluid. End impression. Single view chest findings: Post thoracentesis chest x-ray demonstrates interval decrease in the size of right-sided pleural effu neto. There is small residual pleural effusion There is no pneumothorax. Theleft lung is clear. Impression: Marked interval decrease in theright pleural effusion status post thoracentesis. No pneumothorax. Exam performed: 2 views of the chest. Indication: Reason: Post Thoracentesis / Spl. Instructions: / History: Date of Service: 01/19/2022 3:39 PM. Comparison : None available. Findings: PA and lateral radiographs of the chest reveal a normal cardiomediastinal contour. The lungs are xavi r. No pleural fluid is seen. The visualized osseous structures are unremarkable. Impression: No acute cardiopulmonary process seen. Electronically signed by: Maureen Barnett MD (01/19/2022 3:55 PM) [id number]
--- NOTE | 2022-01-19 16:26 | NUR ---
This nurse spoke with patient in room post thoracentesis, patient wishing to be discharged, call placed to Dr. Franco's message center. Order received to discharge patient to home.
[2022-01-19] MEDS ORDERED: IBUPROFEN 400 MG TABLET. PO SCH (17:00)
--- NOTE | 2022-01-19 19:04 | EKG ---
[facility] [address] [place] [address] Test Date: 2022-01-19 Test Time: 06:02:03 Pat Name: IVANNA MYERS Department: Room: 524 1 Gender: M Gi Asst: : 1960 Requested By: YOANA CHAMPAGNE Order Number: [id number] Reading MD: Siva Betancourt Measurements Intervals [place] Rate: 93 P: 36 NV: 162 QRS: -34 QRSD: 106 T: 59 QT: 352 QTc: 440 Interpretive Statements SINUS RHYTHM ABNORMAL LEFT AXIS DEVIATION LEFT ANTERIOR FASCICULAR BLOCK Electronically Signed On 01-20-2022 14:59:12 CDT by Siva Betancourt
--- NOTE | 2022-01-21 09:53 | HP ---
DATE OF SERVICE: 01/18/2022 ADMIT DATE: 01/19/2022 CHIEF COMPLAINT: Recurrent pleural effusion. HISTORY OF PRESENT ILLNESS: A 61-year-old white male with a large right-sided pleural effusion that has recurred per x-ray and physical exam about 10 days or so after 2 liters thoracentesis was done at [facility]. Cytology was negative for tumor cells, but the suspicious as tumor is the source of the fluid as he has had documented lung cancer per [facility] surgery. He has not followed up with Oncology recently regarding CT scans or any recommendations or treatment for this. PAST MEDICAL HISTORY: Documented in the old record. MEDICATIONS: Include Dilaudid for pain, Lyrica and Zovirax. ALLERGIES: No allergies are known. SOCIAL HISTORY: Quit smoking a long time ago, , employed. FAMILY HISTORY: Unremarkable. REVIEW OF SYSTEMS: Unremarkable. OBJECTIVE: ENT: Normal. NECK: No masses, nodes or bruits. LUNGS: Decreased breath sounds and dullness throughout the right chest. Mild tachypnea is noted. CARDIOVASCULAR: Regular rate, heart rate 100. No murmur. ABDOMEN: Obese, soft, benign. EXTREMITIES: Unremarkable. NEUROLOGIC: Nonfocal. ASSESSMENT: Recurrent right pleural effusion suspected secondary to intrapleural malignancy, but cytology negative at this point. PLAN: Repeat thoracentesis therapeutically and pulmonary consult to consider options including intrapleural catheter versus pleurodesis given the speed of the recurrence. Comfort level of pain control with Dilaudid ongoing. CHAKA FIELD: Vipul TID: [id number]
== END 2022-01-19 16:30 | disposition home or self-care (01) | DRG 187 ==
LOC: ER 05:47 → 5 NORTH 07:42
PROVIDERS: ADMIT Family Medicine; ATTEND Family Medicine
PROC: 0W993ZZ Drainage of Right Pleural Cavity, Percutaneous Approach (ICD-10-PCS; principal; 2022-01-19)
DX: J90 Pleural effusion, not elsewhere classified (principal); Z68.41 Body mass index [BMI] 40.0-44.9, adult; E11.9 Type 2 diabetes mellitus without complications; J44.9 Chronic obstructive pulmonary disease, unspecified; M06.9 Rheumatoid arthritis, unspecified; M54.10 Radiculopathy, site unspecified; Z20.822 Contact with and (suspected) exposure to COVID-19; K21.9 Gastro-esophageal reflux disease without esophagitis; M19.90 Unspecified osteoarthritis, unspecified site; Z85.118 Personal history of other malignant neoplasm of bronchus and lung; Z87.891 Personal history of nicotine dependence; Z88.1 Allergy status to other antibiotic agents; Z91.041 Radiographic dye allergy status; E66.01 Morbid (severe) obesity due to excess calories
CPT/HCPCS: 36415; 71045; 71046; 76942; 80053; 82550; 83615; 83880; 84484; 85007; 85025; 85610; 87426; 93005; 96374; J1100; J1940; U0003; 99285-25; G0378

== ENCOUNTER 2022-01-22 08:35 | Outpatient (CLI) | payer MEDICARE ==
[2022-01-22] VITALS (7 sets, daily range): BP systolic 107–143; BP diastolic 68–88
[~2022-01-22] VITALS: Ht 167.6 cm; Wt 118.0 kg
[~2022-01-22 08:35] MED LIST changes: +HYDR2TAB31 PO; +IBUP-1060 PO
[2022-01-22] MEDS ORDERED: LIDOCAINE 1%/EPI 1:100,000 20 ML VIAL. ONE (09:28)
[2022-01-22] MEDS ORDERED: MIDAZOLAM HCL/PF 5 MG/5 ML VIAL. ONE (09:38)
[2022-01-22] MEDS ORDERED: fentaNYL PF VIAL 100 MCG/2 ML VIAL ONE (09:38)
[2022-01-22] MEDS ORDERED: fentaNYL PF VIAL 100 MCG/2 ML VIAL IV ONE (09:45)
[2022-01-22] MEDS ORDERED: LIDOCAINE 1%/EPI 1:100,000 20 ML VIAL. INJ ONE (09:45)
[2022-01-22] MEDS ORDERED: MIDAZOLAM HCL/PF 5 MG/5 ML VIAL. IV ONE (09:45)
[2022-01-22] MEDS ORDERED: ceFAZolin 2GM PREMIX 2 GM/50 ML BAG IV ONE (10:00)
--- NOTE | 2022-01-22 11:53 | NUR ---
pt A& O x4. dressing over rt flank drain clean and dry.has chronic pain. tolerating po well, ambulated w/o problem. MARK Dao instructed pt and pt's on pleurex drain care and drainage. d/c instructions given and questions answered. out to vehicle per w/c. family to drive him home.
--- NOTE | 2022-01-22 16:18 | RAD ---
Ultrasound of fluoroscopically guided placement of a tunneled thoracostomy tube, right-sided INDICATION: Likely malignant pleural effusion, rapidly recurrent Consent: The procedure was explained in its entirety to the patient or the patients designated repres entative by a member of the treatment team, including a discussion of the risks, benefits and commonl y accepted alternatives to the procedure, as well as the expected consequences of no therapy whatsoev er. Discussion of the risks included, but was not limited to, those that are most frequent and thos e that are rare but possibly severe or life-threatening, as well as the possibility of unforeseen com plications. The right chest was prepped and draped using sterile barrier technique. This includes the use of: Cur isrealt guideline approved cutaneous antisepsis, a large sterile sheet to establish a sterile field. Add itionally the network control operators supervisor wore a hat, mask, sterile gloves, a sterile gown during the procedure as well as practiced acceptable hand hygiene prior to placing the line. 1% lidocaine was administered for local anesthesia. Ultrasound evaluation demonstrates a large right pleural effusion. Reference ultrasound images were saved medical record. The right pleural space was accessed laterally under direct ultrasound guidance. A 5 Macedonian sheath was placed. A guidewire was ad vanced into the pleural space under fluoroscopy. A tunneled thoracostomy tube was advanced from a sma ll dermatotomy several centimeters anterior to the access site. The peel-away sheath was advanced ove r a wire into the pleural space. The tunneled thoracostomy tube was delivered through the peel-away s kat. 2 L of pleural fluid was removed. The catheter was secured in place. Sterile dressings were ap plied. No immediate complications were identified. Sedation: The procedure was performed under conscious sedation including continuous cardiopulmonary m onitoring via a dedicated sedation nurse. [id number] sedation time: 30 minutes Total fluoroscopy time: 0.5 minutes Dose area product: 13 mGray centimeter squared Impression: Ultrasound and fluoroscopically guided placement of a right-sided tunneled thoracostomy t ube Electronically signed by: Hank Barboza MD (01/22/2022 4:15 PM) [id number]
== END 2022-01-22 11:42 | disposition home or self-care (01) ==
LOC: INTRAD 08:35
PROVIDERS: ATTEND Specialist
DX: J90 Pleural effusion, not elsewhere classified (principal); J43.9 Emphysema, unspecified; E66.9 Obesity, unspecified; K21.9 Gastro-esophageal reflux disease without esophagitis; M19.90 Unspecified osteoarthritis, unspecified site; Z79.899 Other long term (current) drug therapy; Z98.890 Other specified postprocedural states; Z72.89 Other problems related to lifestyle; Z91.041 Radiographic dye allergy status; Z88.8 Allergy status to other drugs, medicaments and biological substances
CPT/HCPCS: 32550; 75989; 76942; 82945; 83615; 84157; 87102; 87116; 99152; 99153; C1729; C1892; J2250; J3010; J3490; 87075; J0690

== ENCOUNTER → 2022-02-04 | Outpatient (CLI) | payer MEDICARE ==
[2022-01-22 11:35] VITALS: BP 120/68
--- NOTE | 2022-02-05 10:52 | RAD ---
EXAMINATION: CT Chest Without IV contrast. INDICATION:61 years, Male, pulmonary nodule. Follow-up. COMPARISON: 01/09/2022. TECHNIQUE: Spiral CT was obtained from the jugular notch through the posterior costophrenic recess. S agittal and coronal reformats were obtained. Exposure: One or more of the following individualized dose reduction techniques were utilized for thi s examination: 1. Automated exposure control 2. Adjustment of the mA and/or kV according to patient size 3. Use of iterative reconstruction technique. FINDINGS: LUNGS/PLEURA: Interval placement of right pleural drain catheter with residual trace amount of locula rin pleural effusion seen posteriorly and along the right fissure. Diffuse nodular right pleural thic kening. Interlobular septal thickening in the right middle and lower lobes with bronchial wall thicke cabrera. No pneumothorax. No suspicious pulmonary nodule. Calcified granulomas in the right lung. MEDIASTINUM: Enlarged noncalcified and partially calcified subcarinal and right hilar lymph nodes, th e largest in the infrahilar region measures 2.7 x 2.5 cm. Multiple mildly enlarged right cardiophreni c lymph nodes with fat stranding, the largest measures 1.2 cm in short axis. Additional, nonspecific nonenlarged upper mediastinal lymph nodes, unchanged. The thoracic aorta and pulmonary arteries are n ormal in caliber. The heart is normal in size. No pericardial effusion. Mild calcified coronary ather osclerosis. The visualized thyroid and the esophagus are unremarkable. AXILLA/SOFT TISSUE: No supraclavicular or axillary adenopathy. Regional soft tissues are within maggie l limits. UPPER ABDOMEN: Morphology of the liver likely reflecting chronic disease with enlarged left and cauda te lobes with mild surface nodularity. BONES: No evidence of acute fractures or aggressive osseous lesions. IMPRESSION: 1. Interval placement of right pleural drain catheter with residual trace amount of loculated pleura l effusion seen posteriorly and along the right fissure. 2. Diffuse nodular right pleural thickening, findings are nonspecific and can be seen in benign etio logy such as chronic pleural disease or malignancy such as mesothelioma. Clinical correlation is advi sed. 3. Interlobular septal thickening in the right middle and lower lobes with bronchial wall thickening , suggesting of atypical pulmonary edema. 4. Similar enlarged noncalcified and partially calcified subcarinal, right hilar and right cardiophr enic lymph nodes, indeterminate. Etiology includes reactive process versus metastasis. 5. Morphology of the liver likely reflecting chronic disease. Clinical correlation is advised. Electronically signed by: Mathew An MD (02/05/2022 10:49 AM) [facility]
== END ==
LOC: CT 16:24
PROVIDERS: ATTEND Internal Medicine Pulmonary Disease
DX: J84.89 Other specified interstitial pulmonary diseases (principal); R59.0 Localized enlarged lymph nodes; J84.10 Pulmonary fibrosis, unspecified; I25.10 Atherosclerotic heart disease of native coronary artery without angina pectoris; K76.89 Other specified diseases of liver; Z46.82 Encounter for fitting and adjustment of non-vascular catheter
CPT/HCPCS: 71250

== ENCOUNTER → 2022-02-13 | Outpatient (CLI) | payer MEDICARE ==
[2022-01-22 11:35] VITALS: BP 120/68
[~2022-02-13] MED LIST changes: +GADOTERATE 7.5 MMOL/15ML VIAL. IVP ONE
--- NOTE | 2022-02-13 16:06 | RAD ---
MRI LUMBAR SPINE WITHOUT AND WITH IV CONTRAST Date: 02/13/2022 9:19 AM Indication: LUMBAR RADICULOPATHY, LUMBAR DDD Comparison: 12/03/2021. Technique: Multi-planar multi-weighted magnetic resonance imaging of the lumbar spine was performed w ith and without intravenous contrast using the standard lumbar spine protocol. [address] was administered intravenously during the examination. FINDINGS: The lumbar spine is normally aligned. No acute fracture. Mild multilevel degenerative disc desiccatio n and disc height loss. Bone marrow signal intensity is normal. The conus terminates at a normal level. No abnormal signal is seen within the visualized distal spina l cord. No clumping of intrathecal nerve roots. Partially imaged small right pleural effusion. T12-L1: No disc bulge. No facet arthropathy. No significant spinal stenosis or neural foraminal narro wing. L1-L2: Disc bulge. Mild facet arthropathy. No significant spinal stenosis. Mild right neural foramina l narrowing. L2-L3: Disc bulge. Mild facet arthropathy. No significant spinal stenosis. Mild bilateral neural fora anthony narrowing. L3-L4: Disc bulge with annular tear. Mild facet arthropathy. No significant spinal stenosis. Mild jose ateral neural foraminal narrowing. L4-L5: Left hemilaminectomy. Enhancement in the left lateral recess and epidural space, likely postsu rgical. Disc bulge. Moderate facet arthropathy. No significant spinal stenosis. Mild to moderate bila teral neural foraminal narrowing. L5-S1: Disc bulge. Severe right and mild left facet arthropathy. No significant spinal stenosis or ne ural foraminal narrowing. IMPRESSION: Mild to moderate lumbar spondylosis, not progressed from the prior. Electronically signed by: Josh Sow MD (02/13/2022 4:04 PM) [id number]
== END ==
LOC: MRI 08:57
PROVIDERS: ATTEND Anesthesiology
DX: M47.26 Other spondylosis with radiculopathy, lumbar region (principal); M51.27 Other intervertebral disc displacement, lumbosacral region; M48.8X7 Other specified spondylopathies, lumbosacral region; M48.061 Spinal stenosis, lumbar region without neurogenic claudication; M79.2 Neuralgia and neuritis, unspecified; M96.1 Postlaminectomy syndrome, not elsewhere classified
CPT/HCPCS: 72158; A9575

== ENCOUNTER → 2022-02-21 | Outpatient (CLI) | payer MEDICARE ==
[2022-01-22 11:35] VITALS: BP 120/68
[~2022-02-21] MED LIST changes: -GADOTERATE 7.5 MMOL/15ML VIAL. IVP ONE
--- NOTE | 2022-02-21 10:36 | RAD ---
XR CHEST 2V 02/21/2022 Reason: SHORTNESS OF BREATH Comparison: Chest radiograph 01/19/2022 Technique: Frontal and lateral radiographs the chest Findings: Similar widening of the right heart border which is seen on comparison CT a combination of soft tissu e mass and fat. Loculated pleural fluid at the right lung apex. Right basilar chest tube with possibl e loculated basilar fluid. Nodular opacity in the right posterior lung also the loculated fluid. Left lung is clear. No pneumothorax. No pulmonary vascular redistribution. Impression: 1. Areas of loculated fluid in the right pleural space greatest at the right lung apex but also poste riorly and at the lung base. There is a right basilar chest tube in a similar position. 2. Similar nodule pleural and parenchymal disease. Electronically signed by: Devonte Olivera MD (02/21/2022 10:34 AM) [id number]
== END ==
LOC: RAD 08:58
PROVIDERS: ATTEND Internal Medicine Hematology & Oncology
DX: R06.02 Shortness of breath (principal); R91.1 Solitary pulmonary nodule
CPT/HCPCS: 71046

== ENCOUNTER → 2022-03-15 | Outpatient (CLI) | payer MEDICARE ==
[2022-01-22 11:35] VITALS: BP 120/68
--- NOTE | 2022-03-15 10:34 | RAD ---
EXAM: Chest, 2 views. HISTORY: Shortness of breath. COMPARISON: 02/21/2022 FINDINGS: 2 views of the chest are obtained. There has been interval increase in a moderate loculated right pleural effusion or pleural thickening and diffuse lower lobe predominant interstitial infiltr ate. There may be a right infrahilar mass or masslike consolidation. There is a right basilar pleural drainage catheter. There is a stable cardiac silhouette. The left lung is clear. IMPRESSION: 1. Increase in a moderate loculated right pleural effusion or pleural thickening and diffuse lower lo be predominant right lung interstitial infiltrate. There may be an underlying right infrahilar mass o r masslike consolidation. 2. Right basilar pleural drainage catheter. Electronically signed by: Jessica Patel MD (03/15/2022 10:32 AM) [id number]
== END ==
LOC: RAD 09:21
PROVIDERS: ATTEND Internal Medicine Hematology & Oncology
DX: R06.02 Shortness of breath (principal); R91.1 Solitary pulmonary nodule
CPT/HCPCS: 71046